=== PATIENT | female | born 1970 | race Caucasian/White ===

== ENCOUNTER → 2018-06-29 10:35 | Outpatient (CLI) | payer MEDICARE, SELFPAY ==
[2018-06-29 12:12] LABS: Erythrocyte Sedimentation Rate 25 mm/hr (0-20)
[2018-06-29 12:17] LABS: Absolute Lymphocyte Count 2.02 X10^3/ul (0.83-4.51); Absolute Neutrophil Count 5.2 X10^3/uL (2.0-7.7); Basophil# 0.06 X10^3/uL; Basophil% 0.7 % (0-1); Eosinophil# 0.28 X10^3/uL; Eosinophils% 3.4 % (0-5); Hemoglobin 14.1 g/dl (12.0-15.0); Lymphocyte # 2.02 X10^3/ul (4.0); Lymphocyte % 24.6 % (19-41); Mean Corp Hgb Conc 32.8 g/gl (32-36); Mean Corpuscular Hgb 29.7 pg (27.0-32.0); Mean Corpuscular Volume 90.7 fL (81-99); Mean Platelet Vol. 9.8 fl (6.2-12.0); Monocyte# 0.62 X10^3/uL; Monocyte% 7.6 % (0-10); Neutrophil # 5.22 X10^3/uL (2.7-7.7); Neutrophil % 63.6 % (47-70); Platelet Count 273 K/mm3 (150-450); RBC Distribution Width CV 13.3 % (11.6-14.6); RBC Distribution Width SD 43.8 fl (35.1-43.9); Red Blood Count 4.74 M/mm3 (4.2-5.4); White Blood Count 8.2 K/mm3 (4.4-11.0)
[2018-06-29 12:18] LABS: POSITIVE COUNT NO; POSITIVE DIFFERENTIAL NO; POSITIVE MORPHOLOGY NO
[2018-06-29 12:40] LABS: ALB/GLOB Ratio 0.9 RATIO (0.9-2.4); AST(SGOT) 11 U/L (15-37); Alanine Aminotransfer ALT/SGPT 26 U/L (13-56); Albumin, Serum 3.7 g/dL (3.2-5.0); Alkaline Phosphatase 83 U/L (45-117); Anion Gap 8 (5-15); BUN 8 mg/dL (7-18); BUN/Creat Ratio 9.6 RATIO (10-20); Calcium,Total 8.9 mg/dL (8.5-10.1); Chloride 107 mmol/L (98-107); Creatinine, Serum 0.83 mg/dL (0.55-1.02); EST Glomerular Filtration Rate 78 mL/min (>60); Est Glom Filt Rate - Afr Amer 95 mL/min (>60); Globulin 3.9 g/dL (2.2-4.2); Glucose 93 mg/dL (74-106); Lipase 140 U/L (73-393); Potassium 3.8 mmol/L (3.5-5.1); Protein, Total 7.6 g/dL (6.4-8.2); Sodium Level 139 mmol/L (136-145); Thyroid Stim Hormone (TSH) 3.17 uIU/mL (0.358-3.74)
[2018-07-01 00:12] LABS: Endomysial Antibody IgA Negative (Negative)
[2018-07-01 09:34] LABS: Deamidated Gliadin IgA 3 units (0-19); Deamidated Gliadin IgG 3 units (0-19); Immunoglobulin A 200 mg/dL (87-352); t-Transglutaminase IgA <2 U/mL (0-3)
== END ==
PROVIDERS: Family Provider Family Medicine; PCP Family Medicine; Visit Provider Family Medicine
DX: R19.7 Diarrhea, unspecified (principal)
CPT/HCPCS: 36415; 80053; 82784; 83516; 83690; 84443; 85025; 85652; 86255

== ENCOUNTER → 2018-07-19 07:49 | Outpatient (CLI) | payer MEDICARE, MEDICAID, SELFPAY ==
--- NOTE | 2018-07-19 08:01 | US_ITS ---
HISTORY: CHRONIC DIARRHEA TECHNIQUE: Transabdominal ultrasound was performed with real-time and static gimenez-scale imaging. COMPARISON: None FINDINGS: # of images incl. paperwork: 84 Liver: There is normal echogenicity of the liver. The bile ducts are within normal limits. There is no demonstrated mass lesion. Portal vein flow is hepatopedal. Gallbladder: Normal distended gallbladder. The gallbladder wall measures 2 mm. There is a negative sonographic Bryan's sign. There is no pericholecystic fluid. There are no gallstones. Common Bile Duct: The common bile duct measures 4 mm. Spleen: Normal size of the spleen. The spleen measures .. cm. Pancreas: There is normal echogenicity of the pancreas. There is no demonstrated pancreatic mass or cyst. Right Kidney: Normal size of the right kidney. The right kidney measures 9.5 x 4.3 x 3.8 cm. Normal renal cortex. There is no demonstrated renal mass or cyst. There is no right hydronephrosis. No ascites. US/Abdomen Limited IMPRESSION: Normal limited right upper abdominal ultrasound examination. at 1236 Reported and signed by: Anthony Hart MD Electronically Signed: Anthony Hart, at 12:35 EST Tel , Service support ,
== END ==
PROVIDERS: Family Provider Family Medicine; PCP Family Medicine; Referring Provider Family Medicine; Visit Provider Family Medicine
DX: R19.7 Diarrhea, unspecified (principal)
CPT/HCPCS: 76705

== ENCOUNTER → 2019-07-25 | Outpatient (CLI) | payer MEDICARE, SELFPAY ==
[2019-07-25 12:26] LABS: Absolute Lymphocyte Count 1.93 X10^3/uL (0.83-4.51); Absolute Neutrophil Count 4.8 X10^3/uL (2.0-7.7); Basophil# 0.05 X10^3/uL; Basophil% 0.7 % (0-1); Eosinophil# 0.11 X10^3/uL; Eosinophils% 1.5 % (0-5); Hemoglobin 13.4 g/dL (12.0-15.0); Lymphocyte # 1.93 X10^3/ul (4.0); Lymphocyte % 26.2 % (19-41); Mean Corp Hgb Conc 32.7 g/dL (32-36); Mean Corpuscular Hgb 29.6 pg (27.0-32.0); Mean Corpuscular Volume 90.5 fL (81-99); Mean Platelet Vol. 10.5 fl (6.2-12.0); Monocyte% 6.8 % (0-10); NRBC Flagged by Analyzer 0 % (0-5); Neutrophil # 4.75 X10^3/uL (2.7-7.7); Neutrophil % 64.3 % (47-70); Platelet Count 259 K/mm3 (150-450); RBC Distribution Width CV 13.1 % (11.6-14.6); RBC Distribution Width SD 43.4 fl (35.1-43.9); Red Blood Count 4.53 M/mm3 (4.2-5.4); White Blood Count 7.4 K/mm3 (4.4-11.0)
[2019-07-25 12:35] LABS: Vitamin B12 737 pg/mL (211-911); Vitamin D,25 Hydroxy 19.4 ng/mL (29.95-100.01)
[2019-07-25 12:41] LABS: ALB/GLOB Ratio 0.9 RATIO (0.9-2.4); AST(SGOT) 10 U/L (15-37); Alanine Aminotransfer ALT/SGPT 29 U/L (13-56); Albumin, Serum 3.5 g/dL (3.2-5.0); Alkaline Phosphatase 80 U/L (45-117); Anion Gap 5 (5-15); BUN 10 mg/dL (7-18); BUN/Creat Ratio 11.6 RATIO (10-20); Chloride 106 mmol/L (98-107); Cholesterol 214 mg/dL (200); Creatinine, Serum 0.86 mg/dL (0.55-1.02); EST Glomerular Filtration Rate 75 mL/min (>60); Est Glom Filt Rate - Afr Amer 90 mL/min (>60); Globulin 3.7 g/dL (2.2-4.2); Glucose 104 mg/dL (74-106); High Density Lipoprotein 69 mg/dL; Potassium 3.9 mmol/L (3.5-5.1); Protein, Total 7.2 g/dL (6.4-8.2); Sodium Level 137 mmol/L (136-145); Thyroid Stim Hormone (TSH) 2.28 uIU/mL (0.358-3.74)
== END | disposition home or self-care (01) ==
PROVIDERS: PCP Family Medicine; Referring Provider Family Medicine; Visit Provider Family Medicine
DX: E11.319 Type 2 diabetes mellitus with unspecified diabetic retinopathy without macular edema (principal); E55.9 Vitamin D deficiency, unspecified
CPT/HCPCS: 36415; 80053; 82306; 82465; 82607; 83718; 84443; 85025

== ENCOUNTER → 2020-12-13 10:40 | Outpatient (CLI) | payer MEDICARE, MEDICAID, SELFPAY ==
[2020-12-13 11:59] LABS: Absolute Lymphocyte Count 2.19 X10^3/uL (0.83-4.51); Absolute Neutrophil Count 4.1 X10^3/uL (2.0-7.7); Basophil# 0.06 X10^3/uL; Basophil% 0.9 % (0-1); Eosinophil# 0.05 X10^3/uL; Eosinophils% 0.7 % (0-5); Hematocrit 45.2 % (37-47); Hemoglobin 14.7 g/dL (12.0-15.0); Lymphocyte # 2.19 X10^3/ul (0.83-4.51); Lymphocyte % 31.8 % (19-41); Mean Corp Hgb Conc 32.5 g/dL (32-36); Mean Corpuscular Hgb 29.3 pg (27.0-32.0); Mean Platelet Vol. 10.1 fl (6.2-12.0); Monocyte# 0.48 X10^3/uL; NRBC Flagged by Analyzer 0 % (0-5); Neutrophil # 4.08 X10^3/uL (2.7-7.7); Neutrophil % 59.2 % (47-70); Platelet Count 277 K/mm3 (150-450); RBC Distribution Width CV 12.8 % (11.6-14.6); RBC Distribution Width SD 42.1 fl (35.1-43.9); Red Blood Count 5.02 M/mm3 (4.2-5.4); White Blood Count 6.9 K/mm3 (4.4-11.0)
[2020-12-13 12:23] LABS: ALB/GLOB Ratio 1.1 RATIO (0.9-2.4); AST(SGOT) 17 U/L (15-37); Alanine Aminotransfer ALT/SGPT 30 U/L (13-56); Albumin, Serum 4.1 g/dL (3.2-5.0); Alkaline Phosphatase 79 U/L (45-117); Anion Gap 6 (5-15); BUN 7 mg/dL (7-18); BUN/Creat Ratio 7.4 RATIO (10-20); Calcium,Total 8.9 mg/dL (8.5-10.1); Chloride 105 mmol/L (98-107); Creatinine, Serum 0.95 mg/dL (0.55-1.02); EST Glomerular Filtration Rate 67 mL/min (>60); Est Glom Filt Rate - Afr Amer 81 mL/min (>60); Globulin 3.8 g/dL (2.2-4.2); Glucose 122 mg/dL (74-106); Potassium 3.8 mmol/L (3.5-5.1); Protein, Total 7.9 g/dL (6.4-8.2); Sodium Level 138 mmol/L (136-145); Thyroid Stim Hormone (TSH) 2.13 uIU/mL (0.358-3.74)
== END ==
PROVIDERS: PCP Family Medicine; Referring Provider Family Medicine; Visit Provider Family Medicine
DX: E11.319 Type 2 diabetes mellitus with unspecified diabetic retinopathy without macular edema (principal); E66.1 Drug-induced obesity
CPT/HCPCS: 36415; 80053; 84443; 85025

== ENCOUNTER 2021-09-13 17:49 | Outpatient (CLI) | payer MEDICARE, MEDICAID, SELFPAY ==
[2021-09-13 17:51] LABS: Bacteria 0 SEEN /hpf (None Seen); Mucous, Urine 0 SEEN /hpf (<or=2+); Red Blood Cells-Urine 0 SEEN /hpf (0-5); White Blood Cells 0 SEEN /hpf (0-5)
[2021-09-13 18:58] LABS: Color, Urine Yellow (Yellow); Glucose, Dipstick Normal (Normal); Ketone-Dipstick Negative (Negative); Leukocyte Esterase-Dipstick Negative /ul (Negative); Nitrite-Dipstick Negative (Negative); Occult Blood-Urine Negative /ul (Negative); Protein-Dipstick Negative (Negative); Specific Gravity, Urine 1.015 (1.002-1.030); Urine Bilirubin Dipstick Negative (Negative); Urine Clarity Clear (Clear); Urine Urobilinogen Normal (Normal)
[2021-09-13 19:06] LABS: Squamous Epithelial Cells - UA 0-5 SEEN /hpf (5-10)
== END 2021-09-13 23:59 | disposition home or self-care (01) ==
PROVIDERS: PCP Family Medicine; Visit Provider Family Medicine
DX: R30.0 Dysuria (principal)
CPT/HCPCS: 81001; 87086; 87088

== ENCOUNTER → 2021-10-18 | Outpatient (CLI) | payer MEDICARE, MEDICAID, SELFPAY ==
[2021-10-25 20:06] LABS: HPV APTIMA, High Risk Negative (Negative)
[2021-10-25 20:11] LABS: HPV Reflexed? YES, CHARGE PATIENT
== END | disposition home or self-care (01) ==
PROVIDERS: PCP Family Medicine; Visit Provider Registered Nurse
DX: Z12.4 Encounter for screening for malignant neoplasm of cervix (principal)
CPT/HCPCS: 87624; 88175; G0145

== ENCOUNTER → 2021-12-19 | Outpatient (CLI) | payer MEDICARE, MEDICAID, SELFPAY ==
[2021-12-19 12:30] LABS: Absolute Lymphocyte Count 2.39 X10^3/uL (0.83-4.51); Absolute Neutrophil Count 4.3 X10^3/uL (2.0-7.7); Basophil# 0.06 X10^3/uL; Basophil% 0.8 % (0-1); Eosinophil# 0.11 X10^3/uL; Eosinophils% 1.5 % (0-5); Hematocrit 42.6 % (37-47); Hemoglobin 13.8 g/dL (12.0-15.0); Lymphocyte # 2.39 X10^3/ul (0.83-4.51); Lymphocyte % 31.8 % (19-41); Mean Corp Hgb Conc 32.4 g/dL (32-36); Mean Corpuscular Hgb 29.3 pg (27.0-32.0); Mean Corpuscular Volume 90.4 fL (81-99); Mean Platelet Vol. 9.9 fl (6.2-12.0); Monocyte# 0.59 X10^3/uL; Monocyte% 7.8 % (0-10); NRBC Flagged by Analyzer 0 % (0-5); Neutrophil # 4.33 X10^3/uL (2.7-7.7); Neutrophil % 57.6 % (47-70); Platelet Count 288 K/mm3 (150-450); RBC Distribution Width SD 43.1 fl (35.1-43.9); Red Blood Count 4.71 M/mm3 (4.2-5.4); White Blood Count 7.5 K/mm3 (4.4-11.0)
[2021-12-19 13:28] LABS: ALB/GLOB Ratio 1.1 RATIO (0.9-2.4); AST(SGOT) 20 U/L (15-37); Alanine Aminotransfer ALT/SGPT 38 U/L (13-56); Albumin, Serum 3.9 g/dL (3.2-5.0); Alkaline Phosphatase 80 U/L (45-117); Anion Gap 9 (5-15); BUN 9 mg/dL (7-18); BUN/Creat Ratio 8.7 RATIO (10-20); Calcium,Total 9.5 mg/dL (8.5-10.1); Chloride 102 mmol/L (98-107); Creatinine, Serum 1.03 mg/dL (0.55-1.02); EST Glomerular Filtration Rate 61 mL/min (>60); Est Glom Filt Rate - Afr Amer 73 mL/min (>60); Globulin 3.7 g/dL (2.2-4.2); Glucose 114 mg/dL (74-106); Protein, Total 7.6 g/dL (6.4-8.2); Sodium Level 138 mmol/L (136-145); Thyroid Stim Hormone (TSH) 2.38 uIU/mL (0.358-3.74)
== END | disposition home or self-care (01) ==
LOC: MFPLAB 11:22
PROVIDERS: PCP Family Medicine; Visit Provider Family Medicine
DX: E11.22 Type 2 diabetes mellitus with diabetic chronic kidney disease (principal); E11.319 Type 2 diabetes mellitus with unspecified diabetic retinopathy without macular edema; N18.2 Chronic kidney disease, stage 2 (mild)
CPT/HCPCS: 36415; 80053; 84443; 85025

== ENCOUNTER → 2022-06-27 | Outpatient (CLI) | payer MEDICARE, MEDICAID, SELFPAY ==
[2022-06-27 15:05] LABS: Absolute Lymphocyte Count 1.47 X10^3/uL (0.83-4.51); Absolute Neutrophil Count 5.7 X10^3/uL (2.0-7.7); Basophil# 0.04 X10^3/uL; Basophil% 0.5 % (0-1); Eosinophil# 0.07 X10^3/uL; Eosinophils% 0.9 % (0-5); Hemoglobin 14.1 g/dL (12.0-15.0); Lymphocyte # 1.47 X10^3/ul (0.83-4.51); Lymphocyte % 19.2 % (19-41); Mean Corpuscular Hgb 29.3 pg (27.0-32.0); Mean Corpuscular Volume 91.3 fL (81-99); Mean Platelet Vol. 10.4 fl (6.2-12.0); Monocyte# 0.37 X10^3/uL; Monocyte% 4.8 % (0-10); NRBC Flagged by Analyzer 0 % (0-5); Neutrophil # 5.68 X10^3/uL (2.7-7.7); Neutrophil % 74.2 % (47-70); Platelet Count 273 K/mm3 (150-450); RBC Distribution Width CV 13.3 % (11.6-14.6); Red Blood Count 4.82 M/mm3 (4.2-5.4); White Blood Count 7.7 K/mm3 (4.4-11.0)
[2022-06-27 15:45] LABS: ALB/GLOB Ratio 1.1 RATIO (0.9-2.4); AST(SGOT) 12 U/L (15-37); Alanine Aminotransfer ALT/SGPT 28 U/L (13-56); Albumin, Serum 3.9 g/dL (3.2-5.0); Alkaline Phosphatase 72 U/L (45-117); Anion Gap 6 (5-15); BUN 7 mg/dL (7-18); Calcium,Total 9.1 mg/dL (8.5-10.1); Chloride 105 mmol/L (98-107); Creatinine, Serum 0.88 mg/dL (0.55-1.02); EST Glomerular Filtration Rate 72 mL/min (>60); Est Glom Filt Rate - Afr Amer 88 mL/min (>60); GGTP 31 U/L (5-55); Globulin 3.4 g/dL (2.2-4.2); Glucose 131 mg/dL (74-106); Protein, Total 7.3 g/dL (6.4-8.2); Sodium Level 140 mmol/L (136-145); Thyroid Stim Hormone (TSH) 2.87 uIU/mL (0.358-3.74)
[2022-06-27 15:47] LABS: Microalbumin,Random Urine 9.9 mg/L (NO RANGE EST.); Microalbumin:Creatinine Ratio 10.8 mg/g CRE (<30 mg/g CRE)
== END | disposition home or self-care (01) ==
LOC: MFPLAB 12:07
PROVIDERS: PCP Family Medicine; Visit Provider Family Medicine
DX: E11.319 Type 2 diabetes mellitus with unspecified diabetic retinopathy without macular edema (principal); F10.10 Alcohol abuse, uncomplicated
CPT/HCPCS: 36415; 80053; 82043; 82570; 82977; 84443; 85025

== ENCOUNTER → 2022-10-02 | Outpatient (CLI) | payer MEDICARE, MEDICAID, SELFPAY ==
[2022-10-02 15:24] LABS: Vitamin D,25 Hydroxy 21.7 ng/mL
[2022-10-02 15:27] LABS: AST(SGOT) 77 U/L (15-37); Alanine Aminotransfer ALT/SGPT 103 U/L (13-56); Albumin, Serum 3.5 g/dL (3.2-5.0); Alkaline Phosphatase 102 U/L (45-117); Anion Gap 3 (5-15); BUN 8 mg/dL (7-18); BUN/Creat Ratio 10.2 RATIO (10-20); Chloride 105 mmol/L (98-107); Creatinine, Serum 0.79 mg/dL (0.55-1.02); EST Glomerular Filtration Rate 82 mL/min (>60); Est Glom Filt Rate - Afr Amer 99 mL/min (>60); Globulin 3.5 g/dL (2.2-4.2); Glucose 130 mg/dL (74-106); Potassium 4.1 mmol/L (3.5-5.1); Sodium Level 136 mmol/L (136-145)
[2022-10-02 15:43] LABS: Hemoglobin A1c 7.1 % (3.8-5.6)
== END | disposition home or self-care (01) ==
LOC: MFPLAB 12:09
PROVIDERS: PCP Family Medicine; Referring Provider Family Medicine; Visit Provider Family Medicine
DX: N18.2 Chronic kidney disease, stage 2 (mild) (principal); E11.22 Type 2 diabetes mellitus with diabetic chronic kidney disease; N91.2 Amenorrhea, unspecified
CPT/HCPCS: 36415; 80053; 82306; 83036; 84443

== ENCOUNTER → 2023-04-03 | Outpatient (CLI) | payer MEDICAID, SELFPAY ==
[2023-04-03 15:15] LABS: Absolute Lymphocyte Count 1.68 X10^3/uL (0.83-4.51); Absolute Neutrophil Count 3.9 X10^3/uL (2.0-7.7); Basophil# 0.04 X10^3/uL; Basophil% 0.7 % (0-1); Eosinophil# 0.06 X10^3/uL; Hematocrit 43.2 % (37-47); Hemoglobin 13.3 g/dL (12.0-15.0); Lymphocyte # 1.68 X10^3/ul (0.83-4.51); Lymphocyte % 27.3 % (19-41); Mean Corp Hgb Conc 30.8 g/dL (32-36); Mean Corpuscular Hgb 28.4 pg (27.0-32.0); Mean Corpuscular Volume 92.3 fL (81-99); Mean Platelet Vol. 11.1 fl (6.2-12.0); Monocyte# 0.45 X10^3/uL; Monocyte% 7.3 % (0-10); NRBC Flagged by Analyzer 0 % (0-5); Neutrophil # 3.91 X10^3/uL (2.7-7.7); Neutrophil % 63.5 % (47-70); Platelet Count 204 K/mm3 (150-450); RBC Distribution Width CV 14.1 % (11.6-14.6); RBC Distribution Width SD 47.8 fl (35.1-43.9); Red Blood Count 4.68 M/mm3 (4.2-5.4); White Blood Count 6.2 K/mm3 (4.4-11.0)
[2023-04-03 15:53] LABS: ALB/GLOB Ratio 0.9 RATIO (0.9-2.4); AST(SGOT) 15 U/L (15-37); Alanine Aminotransfer ALT/SGPT 35 U/L (13-56); Albumin, Serum 3.4 g/dL (3.2-5.0); Alkaline Phosphatase 65 U/L (45-117); Anion Gap 7 (5-15); BUN 7 mg/dL (7-18); BUN/Creat Ratio 8.7 RATIO (10-20); Calcium,Total 8.7 mg/dL (8.5-10.1); Chloride 105 mmol/L (98-107); Cholesterol 156 mg/dL (200); EST Glomerular Filtration Rate 80 mL/min (>60); Est Glom Filt Rate - Afr Amer 97 mL/min (>60); Globulin 3.6 g/dL (2.2-4.2); Glucose 244 mg/dL (74-106); High Density Lipoprotein 79 mg/dL; Sodium Level 135 mmol/L (136-145)
== END | disposition home or self-care (01) ==
LOC: MFPLAB 12:23
PROVIDERS: PCP Family Medicine; Visit Provider Family Medicine
DX: R74.8 Abnormal levels of other serum enzymes (principal); F33.1 Major depressive disorder, recurrent, moderate; E11.22 Type 2 diabetes mellitus with diabetic chronic kidney disease; N18.9 Chronic kidney disease, unspecified
CPT/HCPCS: 36415; 80053; 82465; 83718; 84443; 85025

== ENCOUNTER → 2023-10-01 | Outpatient (CLI) | payer MEDICAID, SELFPAY ==
[2023-10-01 12:06] LABS: Absolute Lymphocyte Count 1.56 X10^3/uL (0.83-4.51); Absolute Neutrophil Count 4.8 X10^3/uL (2.0-7.7); Basophil# 0.04 X10^3/uL; Basophil% 0.6 % (0-1); Eosinophil# 0.12 X10^3/uL; Eosinophils% 1.7 % (0-5); Hemoglobin 14.3 g/dL (12.0-15.0); Lymphocyte # 1.56 X10^3/ul (0.83-4.51); Lymphocyte % 22.1 % (19-41); Mean Corp Hgb Conc 32.5 g/dL (32-36); Mean Corpuscular Hgb 28.7 pg (27.0-32.0); Mean Corpuscular Volume 88.4 fL (81-99); Mean Platelet Vol. 11.1 fl (6.2-12.0); Monocyte# 0.53 X10^3/uL; Monocyte% 7.5 % (0-10); NRBC Flagged by Analyzer 0 % (0-5); Neutrophil # 4.78 X10^3/uL (2.7-7.7); Neutrophil % 67.8 % (47-70); Platelet Count 248 K/mm3 (150-450); RBC Distribution Width CV 13.8 % (11.6-14.6); RBC Distribution Width SD 44.3 fl (35.1-43.9); Red Blood Count 4.98 M/mm3 (4.2-5.4); White Blood Count 7.1 K/mm3 (4.4-11.0)
[2023-10-01 13:49] LABS: Hemoglobin A1c 6.2 % (3.8-5.6)
[2023-10-01 15:13] LABS: ALB/GLOB Ratio 0.9 RATIO (0.9-2.4); AST(SGOT) 14 U/L (15-37); Alanine Aminotransfer ALT/SGPT 30 U/L (13-56); Albumin, Serum 3.7 g/dL (3.2-5.0); Alkaline Phosphatase 85 U/L (45-117); Anion Gap 8 (5-15); BUN 8 mg/dL (7-18); BUN/Creat Ratio 7.9 RATIO (10-20); Calcium,Total 9.5 mg/dL (8.5-10.1); Chloride 106 mmol/L (98-107); Creatinine, Serum 1.01 mg/dL (0.55-1.02); EST Glomerular Filtration Rate 61 mL/min (>60); Est Glom Filt Rate - Afr Amer 74 mL/min (>60); Follicle Stimulating Hormone 66.1 mIU/mL; Globulin 4.1 g/dL (2.2-4.2); Glucose 137 mg/dL (74-106); Protein, Total 7.8 g/dL (6.4-8.2); Sodium Level 135 mmol/L (136-145)
== END | disposition home or self-care (01) ==
LOC: MFPLAB 09:44
PROVIDERS: PCP Family Medicine; Visit Provider Family Medicine
DX: E11.319 Type 2 diabetes mellitus with unspecified diabetic retinopathy without macular edema (principal); E66.1 Drug-induced obesity
CPT/HCPCS: 36415; 80053; 83001; 83036; 84443; 85025

== ENCOUNTER → 2024-04-07 | Outpatient (CLI) | payer MEDICAID, SELFPAY ==
[2024-04-07 12:25] LABS: Absolute Lymphocyte Count 1.54 X10^3/uL (0.83-4.51); Absolute Neutrophil Count 4.1 X10^3/uL (2.0-7.7); Basophil# 0.04 X10^3/uL; Basophil% 0.6 % (0-1); Eosinophil# 0.13 X10^3/uL; Eosinophils% 2.1 % (0-5); Hematocrit 43.1 % (37-47); Hemoglobin 14.3 g/dL (12.0-15.0); Lymphocyte # 1.54 X10^3/ul (0.83-4.51); Lymphocyte % 24.3 % (19-41); Mean Corp Hgb Conc 33.2 g/dL (32-36); Mean Corpuscular Hgb 29.2 pg (27.0-32.0); Mean Platelet Vol. 11.3 fl (6.2-12.0); Monocyte# 0.49 X10^3/uL; Monocyte% 7.7 % (0-10); NRBC Flagged by Analyzer 0 % (0-5); Neutrophil # 4.12 X10^3/uL (2.7-7.7); Platelet Count 249 K/mm3 (150-450); RBC Distribution Width CV 13.4 % (11.6-14.6); RBC Distribution Width SD 42.6 fl (35.1-43.9); White Blood Count 6.3 K/mm3 (4.4-11.0)
[2024-04-07 14:00] LABS: AST(SGOT) 13 U/L (15-37); Alanine Aminotransfer ALT/SGPT 24 U/L (13-56); Albumin, Serum 3.7 g/dL (3.2-5.0); Alkaline Phosphatase 68 U/L (45-117); Anion Gap 8 (5-15); BUN 5 mg/dL (7-18); BUN/Creat Ratio 6.5 RATIO (10-20); Calcium,Total 9.9 mg/dL (8.5-10.1); Chloride 107 mmol/L (98-107); Creatinine, Serum 0.77 mg/dL (0.55-1.02); EST Glomerular Filtration Rate 83 mL/min (>60); Est Glom Filt Rate - Afr Amer 101 mL/min (>60); Globulin 3.7 g/dL (2.2-4.2); Glucose 98 mg/dL (74-106); Potassium 3.7 mmol/L (3.5-5.1); Protein, Total 7.4 g/dL (6.4-8.2); Sodium Level 136 mmol/L (136-145)
== END | disposition home or self-care (01) ==
LOC: MFPLAB 10:50
PROVIDERS: PCP Family Medicine; Visit Provider Family Medicine
DX: E11.22 Type 2 diabetes mellitus with diabetic chronic kidney disease (principal); N18.9 Chronic kidney disease, unspecified
CPT/HCPCS: 36415; 80053; 84443; 85025

== ENCOUNTER → 2024-04-08 | Outpatient (CLI) | payer MEDICAID, SELFPAY ==
[2024-04-12 16:10] LABS: HPV APTIMA, High Risk Negative (Negative)
[2024-04-12 20:56] LABS: HPV Reflexed? YES, CHARGE PATIENT
== END | disposition home or self-care (01) ==
LOC: LABSPEC 11:13
PROVIDERS: PCP Family Medicine; Visit Provider Registered Nurse
DX: Z12.4 Encounter for screening for malignant neoplasm of cervix (principal)
CPT/HCPCS: 87624; 88175; G0145

== ENCOUNTER → 2024-07-22 | Outpatient (CLI) | payer MEDICAID, SELFPAY ==
[2024-07-22 18:03] LABS: Absolute Lymphocyte Count 1.91 X10^3/uL (0.83-4.51); Absolute Neutrophil Count 3.3 X10^3/uL (2.0-7.7); Basophil# 0.06 X10^3/uL; Eosinophil# 0.21 X10^3/uL; Eosinophils% 3.6 % (0-5); Hemoglobin 13.5 g/dL (12.0-15.0); Lymphocyte # 1.91 X10^3/ul (0.83-4.51); Lymphocyte % 32.8 % (19-41); Mean Corp Hgb Conc 31.4 g/dL (32-36); Mean Corpuscular Hgb 28.6 pg (27.0-32.0); Mean Corpuscular Volume 91.1 fL (81-99); Mean Platelet Vol. 11.1 fl (6.2-12.0); Monocyte# 0.35 X10^3/uL; NRBC Flagged by Analyzer 0 % (0-5); Neutrophil # 3.28 X10^3/uL (2.7-7.7); Neutrophil % 56.4 % (47-70); Platelet Count 243 K/mm3 (150-450); RBC Distribution Width CV 13.3 % (11.6-14.6); RBC Distribution Width SD 44.9 fl (35.1-43.9); Red Blood Count 4.72 M/mm3 (4.2-5.4); White Blood Count 5.8 K/mm3 (4.4-11.0)
[2024-07-22 18:11] LABS: Microalbumin,Random Urine 12.5 mg/L (NO RANGE EST.); Microalbumin:Creatinine Ratio 5.6 mg/g CRE (<30 mg/g CRE)
[2024-07-22 18:19] LABS: ALB/GLOB Ratio 1.1 RATIO (0.9-2.4); AST(SGOT) 14 U/L (15-37); Alanine Aminotransfer ALT/SGPT 29 U/L (13-56); Albumin, Serum 3.9 g/dL (3.2-5.0); Alkaline Phosphatase 64 U/L (45-117); Anion Gap 9 (5-15); BUN 8 mg/dL (7-18); BUN/Creat Ratio 9.1 RATIO (10-20); Calcium,Total 9.7 mg/dL (8.5-10.1); Chloride 108 mmol/L (98-107); Creatinine, Serum 0.88 mg/dL (0.55-1.02); EST Glomerular Filtration Rate 72 mL/min (>60); Est Glom Filt Rate - Afr Amer 87 mL/min (>60); Globulin 3.5 g/dL (2.2-4.2); Glucose 91 mg/dL (74-106); Potassium 3.3 mmol/L (3.5-5.1); Protein, Total 7.4 g/dL (6.4-8.2); Sodium Level 143 mmol/L (136-145)
== END | disposition home or self-care (01) ==
LOC: MFPLAB 14:38
PROVIDERS: PCP Family Medicine; Referring Provider Family Medicine; Visit Provider Family Medicine
DX: E11.22 Type 2 diabetes mellitus with diabetic chronic kidney disease (principal); E11.319 Type 2 diabetes mellitus with unspecified diabetic retinopathy without macular edema; N18.2 Chronic kidney disease, stage 2 (mild)
CPT/HCPCS: 36415; 80053; 82043; 82570; 85025

== ENCOUNTER → 2025-01-20 | Outpatient (CLI) | payer MEDICAID, SELFPAY ==
[2025-01-20 15:54] LABS: Hematocrit 40.5 % (37-47); Hemoglobin 13.0 g/dL (12.0-15.0); Immature Granulocytes Count 0.020 X10^3/uL (0.0-0.0); Mean Corp Hgb Conc 32.1 g/dL (32-36); Mean Corpuscular Volume 90.6 fL (81-99); Mean Platelet Vol. 10.9 fl (6.2-12.0); NRBC Flagged by Analyzer 0 % (0-5); Platelet Count 229 K/mm3 (150-450); RBC Distribution Width CV 13.3 % (11.6-14.6); RBC Distribution Width SD 44.2 fl (35.1-43.9); Red Blood Count 4.47 M/mm3 (4.2-5.4); White Blood Count 6.2 K/mm3 (4.4-11.0)
[2025-01-20 16:15] LABS: Creatinine, Urine (random) 41.70 mg/dL (28.00-217.00); Microalbumin,Random Urine < 12.0 mg/L (<20 mg/L)
[2025-01-20 16:18] LABS: AST(SGOT) 34 U/L (<=31); Alanine Aminotransfer ALT/SGPT 47 U/L (<=34); Albumin, Serum 4.2 g/dL (3.5-5.0); Alkaline Phosphatase 87 U/L (35-104); Anion Gap 12 (5-15); BUN 8 mg/dL (4-19); BUN/Creat Ratio 8.5 RATIO (10-20); Calcium,Total 9.7 mg/dL (7.6-11.0); Carbon Dioxide 25.0 mmol/L (21.0-32.0); Chloride 102 mmol/L (98-108); Cholesterol 174 mg/dL (<=200); Globulin 2.8 g/dL (2.2-4.2); Glucose 77 mg/dL (70-99); Potassium 3.9 mmol/L (3.3-5.1)
[2025-01-22 06:39] LABS: LDL, Direct 120295 80 mg/dL (0-99)
== END | disposition home or self-care (01) ==
LOC: MFPLAB 11:32
PROVIDERS: PCP Family Medicine; Visit Provider Family Medicine
DX: E11.319 Type 2 diabetes mellitus with unspecified diabetic retinopathy without macular edema (principal); E78.2 Mixed hyperlipidemia
CPT/HCPCS: 36415; 80053; 82043; 82465; 82570; 83718; 83721; 85025

== ENCOUNTER 2025-03-27 07:07 | Day surgery (SDC) | payer MEDICARE, MEDICAID, SELFPAY ==
[2025-03-27] VITALS (11 sets, daily range): BP systolic 80–120; BP diastolic 57–73; PULSE 57–81; RESP 12–16; TEMP 36.1–36.6; O2SAT 99–100; BMI 23.1
--- NOTE | 2025-03-27 07:20 | H&P.OPEN ---
HPI - General General Date of Service: 03/27/25 HPI Narrative NORMA BOONE, is a 54 F who presents for screening colonoscopy due to colon cancer. Patient denies any changes since office visit. Office visit 02/23/2025 [facility] HPI: 44-year-old female presents with her boyfriend for a colonoscopy. Patient is legally blind. Patient never had previous colonoscopy. Patient states that her daughter stated her stool had been black occasionally. Patient does take a multivitamin with iron. Patient denies any abdominal pain does have constipation daily states she has hard small amounts of stool only. Patient has been on Mounjaro for about a year. Patient denies any family history of colon cancer. [facility] Medical History (Updated 03/23/25 @ 08:31 by Flor Mccoy) Vision abnormalities Dietary restriction Non-smoker Anxiety Depression Diabetes Home Medications ?Medication ?Instructions ?Recorded ?Last Taken ?Type bupropion HCl 100 mg tablet,12 hr 100 mg PO QAM 02/23/25 Unknown History sustained-release (Wellbutrin SR) multivitamin 1 tab PO QAM 02/23/25 Unknown History sertraline 50 mg tablet 50 mg PO QDAY 02/23/25 Unknown History tirzepatide 2.5 mg/0.5 mL 2.5 mg subcut QWEEK 02/23/25 Unknown History subcutaneous pen injector (Mounjaro) cholecalciferol (vitamin D3) 25 25 mcg PO DAILY 03/23/25 Unknown History mcg (1,000 unit) tablet hydroxyzine HCl 10 mg tablet 10 mg PO BID 03/23/25 Unknown History potassium citrate 5 mEq (540 mg) 540 mg PO .qd 03/23/25 Unknown History tablet,extended release rosuvastatin 20 mg tablet 20 mg PO QHS 03/23/25 Unknown History Allergy/AdvReac Type Severity Reaction Status Date / Time codeine Allergy Mild Other Verified 03/23/25 08:18 Family History (Updated 02/23/25 @ 13:01 by Chyna Alexander) Daughter Diabetes Grandmother Heart disease Surgical History (Updated 02/23/25 @ 13:00 by Chyna Alexander) delivery delivered Social History (Updated 02/23/25 @ 13:03 by Chyna Alexander) Smoking Status: Never smoker alcohol intake: current alcohol intake frequency: a few times a month additional social history: Vapes CBD oil Past Medical/Surgical History Planned Operation Planned Operative Procedure(s): Colonoscopy Previous Hospitalizations/Surgeries HX Hospitalizations: No Any Problems With Anesthesia: No You/Your Family Experience Fever (Hyperthermia) With Anes: No Cholinesterase deficiency: No Cardiovascular Hx Heart Attack: No Hx Hypertension: No Respiratory Hx Chronic Obstructive Pulmonary Disease (COPD): No Hx Asthma: No Hx Emphysema: No Hx Sleep Apnea: No Hx Respiratory Tract Infection/Cold (presently): No Do You Snore Loudly (louder than talking or can be heard): No Do You Often Feel Tired/ Fatigued/ Sleepy Dring Daytime?: No Has Anyone Observed You Stop Breathing During Sleep?: No Result (for STOP score): Negative Smoking Status: Never smoker Neurological Hx Seizures: No Does patient have nerve stimulator: No Reproduction : No Allergies codeine Allergy (Mild, Verified 03/23/25 08:18) Other has increased heart rate, N/V Discharge Is Pt Admitted From a Assisted, or a Care Home: No After D/C, Where Do you Plan to Go: Return Home Physical Exam Const alert, oriented x3 and no apparent distress HEENT normocephalic and head/scalp atraumatic Resp normal respiratory effort Cardio regular rate GI soft to palpation and non-tender; Negative for non-distended Palpation: Negative for guarding Extremity no clubbing, cyanosis or edema Skin no rashes or lesions noted Neuro CN's II-XII intact bilaterally Psych mental status grossly normal Assessment & Plan Assessment/Plan (1) Encounter for screening for malignant neoplasm of colon: Surgery Risks - Colonoscopy I discussed with the patient the risks of the procedure: Yes Risks Include but are not Limited To: Risks include but are not limited to: Bleeding, perforation requiring further surgery, inability to complete colonoscopy requiring barium enema.
--- OUTSIDE RECORDS SUMMARY | 2025-03-27 07:21 | XMS RPT_ITS | CCD ---
Author Organization [facility] Care Team Providers Care Mri Technician Name Role Phone Alfred LANDA, Kristina Mcadams Primary Care Provider Alfred LANDA, Dr. Walsh Primary Care Provider [phone] Alfred LANDA, Dr. Walsh Attending Provider [phone] Alfred LANDA, Dr. Walsh Referring Provider [phone] Audelia LANDA, Dr. Oro Attending Provider Kristina Simon Referring Unavailable Kristina Simon Primary Care Unavailable Preethi Win Attending Unavailable Lisy Venegas Attending Unavailable Simon, Kristina Primary Care Unavailable Kristina Simon Attending Unavailable Alfred, Kristina Referring Unavailable Simon, Kristina Primary Care Unavailable Simon, Kristina Primary Care Unavailable Kristina Simon Attending Unavailable Alfred Kristina Attending Unavailable Alfred, Kristina Primary Care Unavailable Alfred, Kristina Primary Care Unavailable Preethi Win Attending Unavailable Allergies Allergy Classification Reported Allergen(s) Allergy Type Date of Onset Reaction(s) Facility (8 sources) Codeine; Translations: [CODEINE] Drug Allergy 06-25-2005 Other [facility] Work Phone: Comment on above: has increased heart rate, N/V (1 source) Codeine Drug Allergy 02-23-2025 [facility] Rep[facility] Medications Current Medications Medication Drug Class(es) Dates Sig (Normalized) Sig (Original) 12 hr buPROPion hydrochloride 100 mg extended release oral tablet (7 sources) Aminoketone Start: 02-23-2025 take 1 tablet by mouth once daily in the morning Bupropion Hcl (Wellbutrin Sr) 100 mg tablet sustained-release 12 hr Active 100 mg PO EVERY MORNING February 23, 2025 12:00am Start: 06-11-2009 bupropion hcl( WELLBUTRIN XL 300 MG 24 HR TAB) Take one(1) tablet daily. 0 06/11/2009 Active Comment on above: Take one(1) tablet d aily. Multivitamin tablet (1 source) Start: Multivitamin tablet Active 1 {tbl} PO EVERY MORNING February 23, 2025 12:00am sertraline 50 mg oral tablet (7 sources) Serotonin Reuptake Inhibitor Start: take 1 tablet by mouth once daily Sertraline 50 mg tablet Active 50 mg PO daily February 23, 2025 12:00am Start: 01-01-2018 sertraline (ZO LOFT) 50 mg tablet Tirzepatide (Mounjaro) 2.5 mg/0.5 mL pen injector (1 source) Start: 02-23-2025 Tirzepatide (M ounjaro) 2.5 mg/0.5 mL pen injector Active 2.5 mg SC EVERY WEEK February 23, 2025 12:00am for 4 weeks Completed/Discontinued Medications Medication Drug Class(es) Dates Sig (Normalized) Sig (Original) LORazepam 1 mg oral tablet (6 sources) Benzodiazepine Start: 06-11-2009 End: 01-14-2023 lorazepam(ATIVAN 1 MG TAB) Take one(1) tablet twice daily. 0 06/11/2009 01/14/2023 Discontinued Comment on above: Take one(1) tablet t wice daily. 24 hr metFORMIN hydrochloride 750 mg extended release oral tablet (6 sources) Biguanide Start: 11-13-2017 metFORMIN ER (GLUCOPHAGE XR) 750 mg 24 hr tablet pravastatin sodium 40 mg oral tablet (6 sources) HMG-CoA Reductase Inhibitor Start: 11-06-2017 pravastatin (PRAVACHOL) 40 mg tablet Problems Active Problems Problem Classification Problem Date Documented Da te Episodic/Chronic Blindness and vision defects (1 source) Blindness AND/OR vision impairment level; Translations: [Unspecified visual loss] 02-23-2025 Chronic Diabetes mellitus with complications (2 sources) Type 2 diabetes mellitus with unspecified diabetic retinopathy without macular edema; Translations: [Type 2 diabetes mellitus with diabetic chronic kidney disease] Onset: 08-09-2024 Chronic Diabetes mellitus without complication (6 sources) Diabetes mellitus; Translations: [Type 2 diabetes mellitus without complications] Onset: 09-13-2007 09-13-2007 Chronic Other gastrointestinal disorders (1 source) Constipation; Translations: [Constipation, unspecified] 02-23-2025 Episodic Other nutritional; endocrine; and metabolic disorders (6 sources) Obese class I; Translations: [Obesity, unspecified] Onset: 01-15-2018 01-15-2018 Chronic Superficial injury; contusion (1 source) Splinter in hand; Translations: [Superficial foreign body of right hand, initial encounter] 01-14-2023 Episodic Past or Other Problems Problem Classification Problem Date Documented Da te Episodic/Chronic Cancer of cervix (6 sources) Atypical squamous cells of undetermined significance on cervical Papanicolaou smear; Translations: [Atypical squamous cells of undetermined significance on cytologic smear of cervix (ASC-US)] Onset: 01-28-2018 07-01-2019 Episodic Other screening for suspected conditions (not mental disorders or infectious disease) (2 sources) Patient encounter status; Translations: [Encounter for screening for malignant neoplasm of colon] Onset: 04-26-2024 02-23-2025 Episodic Results Test Name Value Interpretation Reference Range Facility Surgery Visit Reporton 02-23 Surgery Visit Report [facility] [address] [place] [address] OFFICE VISIT Date of Service: 02/23/25 MR#: [id number] Acct: [id number] Name: SHEY BOONE Rep #: [id number] : 1970 Provider: Dr. Preethi jones MD Age/Sex: 54/F Location: [facility] Status: Signed Intake Vital Signs 02/23/25 13:03 Height 5 ft 2 in Weight: 111 lb BMI 20.2 BP 113/77 Blood Pressure Location Lt brachial Position Sitting Respiration 17 Pulse 77 Pulse Source Monitor Pulse Oximetry (%) 97 Oxygen Delivery Method room air Intake Visit Reasons: COLONOSCOPY Chief Complaint: colonoscopy Accompanied by: Significant Other Is patient in pain?: No Allergies codeine Allergy (Mild, Verified 02/23/25 13:04) Other Medications ???Medication ???Instructions ???Recorded ???Confirmed ???Type bupropion HCl 100 mg tablet,12 hr 100 mg PO QAM 02/23/25 02/23/25 H istory sustained-release (Wellbutrin SR) multivitamin 1 tab PO QAM 02/23/25 02/23/25 His tory sertraline 50 mg tablet 50 mg PO QDAY 02/23/25 02/23/25 Hi story tirzepatide 2.5 mg/0.5 mL 2.5 mg subcut QWEEK 02/23/2502/23 History subcutaneous pen injector (Mounjaro) [facility] Medical History (Updated 02/23/25 @ 13:00 by Chyna Alexander) Anxiety Depression Diabetes Surgical History (Updated 02/23/25 @ 13:00 by Chyna Alexander) delivery delivered Family History (Updated 02/23/25 @ 13:01 by Chyna Alexander) Daughter Diabetes Grandmother Heart disease Social History (Updated 02/23/25 @ 13:03 by Chyna Alexander) alcohol intake: current alcohol intake frequency: a few times a month additional social history: Vapes CBD oil HPI HPI HPI: 44-year-old female presents with her boyfriend for a colonoscopy. Patient is legally blind. Patient never had previous colonoscopy. Patient states that her daughter stated her stool had been black occasionally. Patient does take a multivitamin with iron. Patient denies any abdominal pain does have constipation daily states she has hard small amounts of stool only. Patient has been on Mounjaro for about a year. Patient denies any family history of colon cancer. ROS General General: Yes weight change; No appetite, fatigue, colon cancer or breast cancer Additional Details: loss HEENT HEENT: No difficulty swallowing, eye injury, eye surgery, swollen glands or hoarseness Endo Endocrine: Yes diabetes mellitus; No thyroid disease, thyroid cancer, Hair loss, heat intolerance or cold intolerance Skin Skin: No rash or changing moles Musc Musculoskeletal: No back problems, arthritis, rheumatoid arthritis, gout or joint pain Cardio Cardiovascular: No murmur, pacemaker, heart disease, atrial fibrillation, high blood pressure, heart attack, heart stent, palpitations, shortness of breath with exertion or chest pain Psych Psychiatric: No depression, anxiety or hearing voices Resp Respiratory: No shortness of breath, No sleep apnea, No cough, No COPD, No asthma, No emphysema and No wheezing Gastro Gastrointestinal: Yes abdominal pain, No nausea or vomiting, Yes diarrhea, Yes constipation, No blood in stool, No acid reflux, No hemorrhoids, No ulcers, No gallbladder problem and Yes black,tarry stools Mrav Hematologic: No blood thinners, No blood disorders, No bleeding, No anemia and No blood clots Neuro Neurologic: No numbness and No tingling ROS Narrative Patient is blind and stated that her daughter told her that her stool was black in color. Exam Const General: cooperative, healthy appearing, comfortable and no acute distress HENMT Head: normocephalic Neck Neck: supple Resp Effort Inspection: normal respiratory effort Cardio Rate: regular rate GI Inspection: non-distended Palpation: soft and nontender Skin General: no rashes or lesions noted Extrem General: normal to inspection Psych Mental Status: mental status grossly normal Attitude: cooperative Assessment and Plan Assessment and Plan (1) Constipation: Status: Acute (2) Encounter for screening for malignant neoplasm of colon: Status: Acute Plan Will have patient take some magnesium citrate as she does seem to be constipated for a while. Will also plan for 1 to 2-day prep depending on how patient's bowel movements are prior to the colonoscopy. I have discussed the above with the patient. I have offered the patient colonoscopy for evaluation. I have explained the risks/benefits of the procedure and described the procedure. I have discussed the risks with the patient, including but not limited to: infection, bleeding, perforation of the GI tract requiring emergency surgery, inability to complete the procedure, injury to any internal organs, complications of anesthesia, etc. - the patie (more content not included)... Normal [facility] LDL, Directon 01-22-2025 Cholesterol in LDL [Mass/Vol] 80 mg/dL Normal 0-99 [facility] Comment on above: Order Comment: Order Date: 01/20/25 Order Info: [id number] - LDLD Result Comment: Perf ormed at: CB - [facility] [address] [id number] Jewelry Technician: Adal Reis PhD, Phone: [phone] Performed By: #### L 717.0533, U817.8303, E1758.0012 #### [facility] [address] [place], [address] COMMENT TNP Normal . [facility] Comment on above: Order Comment: Order Date: 01/20/25 Order Info: [id number] - LDLD Performed By: #### L 516.8125, A961.0243, L3300.4490 #### [facility] [address] [place], [address] Absolute lymphocyte countOrd ered By: Kristina Simon on 01-20-2025 Lymphocytes Auto (Unsp spec) [#/Vol] 1.40 10*3/uL 0.83-4.51 [facility] Absolute neutrophil countOrd ered By: Kristina Simon on 01-20-2025 Neutrophils (Bld) [#/Vol] 3.9 10*3/uL 2.0-7.7 [facility] Anion gap in Serum or Plasma Ordered By: Kristina Simon on 01-20-2025 Anion gap [Moles/Vol] 12 mmol/L 5-15 [facility] Automated lymphocyte count a s percentage of total leukocytesOrdered By: Kristina Simon on 01-20-2025 Lymphocytes/100 WBC Auto (Unsp spec) 22.4 % 19-41 [facility] BUN/creatinine ratioOrdered By: Kristina Simon on 01-20-2025 Urea nitrogen/Creatinine [Mass ratio] 8.5 mg/mg Low 10-20 [facility] Basophil percentageOrdered B y: Kristina Simon on 01-20-2025 Basophils/100 WBC (Bld) 1.4 % High 0-1 [facility] Bilirubin, totalOrdered By: Kristina Simon on 01-20-2025 Bilirubin [Mass/Vol] 0.29 mg/dL 0.00-1.30 [facility] CBC W/Diff, Automatedon Absolute Lymph 1.40 X10 3/uL Normal 0.83-4.51 [facility] Comment on above: Order Comment: Order Date: 01/20/25 Order Info: 0184-1 - CBCD Performed By: #### L 500.4050, L100.0100 #### [facility] [address] [place], [address] Absolute Neut 3.9 X10 3/uL Normal 2.0-7.7 [facility] Comment on above: Order Comment: Order Date: 01/20/25 Order Info: 0184-1 - CBCD Performed By: #### L 500.4050, L100.0100 #### [facility] [address] [place], [address] Basophils/100 WBC (Bld) 1.4 % High 0-1 [facility] Comment on above: Order Comment: Order Date: 01/20/25 Order Info: 0184-1 - CBCD Performed By: #### L 500.4050, L100.0100 #### [facility] [address] [place], [address] Eosinophils/100 WBC (Bld) 5.1 % High 0-5 [facility] Comment on above: Order Comment: Order Date: 01/20/25 Order Info: 0184-1 - CBCD Performed By: #### L 500.4050, L100.0100 #### [facility] [address] [place], [address] Erythrocyte distribution width (RBC) [Ratio] 13.3 % Normal 11.6-14.6 [facility] Comment on above: Order Comment: Order Date: 01/20/25 Order Info: 0184-1 - CBCD Performed By: #### L 500.4050, L100.0100 #### [facility] [address] [place], [address] Hematocrit (Bld) [Volume fraction] 40.5 % Normal 37-47 [facility] Comment on above: Order Comment: Order Date: 01/20/25 Order Info: 0184-1 - CBCD Performed By: #### L 500.4050, L100.0100 #### [facility] [address] [place], [address] Hemoglobin (Bld) [Mass/Vol] 13.0 g/dL Normal 12.0-15.0 [facility] Comment on above: Order Comment: Order Date: 01/20/25 Order Info: 0184-1 - CBCD Performed By: #### L 500.4050, L100.0100 #### [facility] [address] [place], [address] IG% 0.300 Normal 0.0-0.9 [facility] Comment on above: Order Comment: Order Date: 01/20/25 Order Info: 0184-1 - CBCD Result Comment: IG% - Immature Granulocytes (promyelocytes, myelocytes and metamyelocytes) > 1% indicates that a LEFT SHIFT is Present. Performed By: #### L 500.4050, L100.0100 #### [facility] [address] [place], [address] Lymphocytes/100 WBC (Bld) 22.4 % Normal 19-41 [facility] Comment on above: Order Comment: Order Date: 01/20/25 Order Info: 0184-1 - CBCD Performed By: #### L 500.4050, L100.0100 #### [facility] [address] [place], [address] MCH (RBC) [Entitic mass] 29.1 pg Normal 27.0-32.0 [facility] Comment on above: Order Comment: Order Date: 01/20/25 Order Info: 0184- - CBCD Performed By: #### L 500.4050, L100.0100 #### [facility] [address] [place], [address] MCHC (RBC) [Mass/Vol] 32.1 g/dL Normal 32-36 [facility] Comment on above: Order Comment: Order Date: 01/20/25 Order Info: 0184-1 - CBCD Performed By: #### L 500.4050, L100.0100 #### [facility] [address] [place], [address] MCV (RBC) [Entitic vol] 90.6 fL Normal 81-99 [facility] Comment on above: Order Comment: Order Date: 01/20/25 Order Info: 0184-1 - CBCD Performed By: #### L 500.4050, L100.0100 #### [facility] [address] [place], [address] Monocytes/100 WBC (Bld) 7.5 % Normal 0-10 [facility] Comment on above: Order Comment: Order Date: 01/20/25 Order Info: 0184-1 - CBCD Performed By: #### L 500.4050, L100.0100 #### [facility] [address] [place], [address] Neutrophils/100 WBC (Bld) 63.3 % Normal 47-70 [facility] Comment on above: Order Comment: Order Date: 01/20/25 Order Info: 0184-1 - CBCD Performed By: #### L 500.4050, L100.0100 #### [facility] [address] [place], [address] Nucleated RBC (Bld) [#/Vol] 0 10*3/uL Normal 0-5 [facility] Comment on above: Order Comment: Order Date: 01/20/25 Order Info: 0184-1 - CBCD Performed By: #### L 500.4050, L100.0100 #### [facility] [address] [place], [address] Platelet mean volume (Bld) [Entitic vol] 10.9 fL Normal 6.2-12.0 [facility] Comment on above: Order Comment: Order Date: 01/20/25 Order Info: 0184-1 - CBCD Performed By: #### L 500.4050, L100.0100 #### [facility] [address] [place], [address] Platelets (Bld) [#/Vol] 229 10*3/uL Normal 150-450 [facility] Comment on above: Order Comment: Order Date: 01/20/25 Order Info: 0184-1 - CBCD Performed By: #### L 500.4050, L100.0100 #### [facility] [address] [place], [address] RBC (Bld) [#/Vol] 4.47 10*6/uL Normal 4.2-5.4 [facility] Comment on above: Order Comment: Order Date: 01/20/25 Order Info: 0184-1 - CBCD Performed By: #### L 500.4050, L100.0100 #### [facility] [address] [place], [address] RDW SD 44.2 fl High 35.1-43.9 [facility] Comment on above: Order Comment: Order Date: 01/20/25 Order Info: 0184- - CBCD Performed By: #### L 500.4050, L100.0100 #### [facility] [address] [place], [address] WBC (Bld) [#/Vol] 6.2 10*3/uL Normal 4.4-11.0 [facility] Comment on above: Order Comment: Order Date: 01/20/25 Order Info: 0184- - CBCD Performed By: #### L 500.4050, L100.0100 #### [facility] [address] [place], [address] Carbon dioxide, total [Moles /volume] in Central venous bloodOrdered By: Kristina Simon on 01-20-2025 CO2 [Moles/Vol] 25.0 mmol/L 21.0-32.0 [facility] Chloride assayOrdered By: Luis Miguel Simon on 01-20-2025 Chloride [Moles/Vol] 102 mmol/L 98-108 [facility] Cholesterolon 01-20-2025 Cholesterol [Mass/Vol] 174 mg/dL Normal <=200 [facility] Comment on above: Order Comment: Order Date: 01/20/25 Order Info: 0786-1 - CMP Order Info: 2092-08 - CHOL Order Info: 2085-02 - HDL Result Comment: Chol esterol level, Desirable <200 mg/dL Borderline high cholesterol 200-239 mg/dL High cholesterol >=240 mg/dL Recommendations of the NCEP Adult Treatment Panel for the following risk-cutoff thresholds for the [place] population. Performed By: #### L 501.6400, L501.4900, L3300.4490 #### [facility] [address] [place], [address] Cholesterol in LDL Direct as say [Mass/Vol]Ordered By: Kristina Simon on 01-20-2025 Cholesterol in LDL [Mass/Vol] 80 mg/dL 0-99 [facility] Comment on above: Performed at: [address] [id number] Director: Adal Reis PhD, Phone: [phone] Comprehensive Metabolic Prof il 01-20-2025 Albumin [Mass/Vol] 4.2 g/dL Normal 3.5-5.0 [facility] Comment on above: Order Comment: Speci men Comment: [id number] Specimen Comment: Source.............Endocervix Specimen Comment: No. of containers..01 ThinPrep Vial Performed By: #### L 7400.0377 #### [facility] [address] [place], [address] Albumin/Globulin [Mass ratio] 1.5 {ratio} Normal 0.9-2.4 [facility] Comment on above: Order Comment: Speci men Comment: [id number] Specimen Comment: Source.............Endocervix Specimen Comment: No. of containers..01 ThinPrep Vial Performed By: #### L 7400.0377 #### [facility] [address] [place], [address] ALK PHOS 87 U/L Normal 35-104 [facility] Comment on above: Order Comment: Speci men Comment: [id number] Specimen Comment: Source.............Endocervix Specimen Comment: No. of containers..01 ThinPrep Vial Performed By: #### L 7400.0377 #### [facility] [address] [place], [address] ALT [Catalytic activity/Vol] 47 U/L High <=34 [facility] Comment on above: Order Comment: Speci men Comment: [id number] Specimen Comment: Source.............Endocervix Specimen Comment: No. of containers..01 ThinPrep Vial Performed By: #### L 7400.0377 #### [facility] [address] [place], [address] AST [Catalytic activity/Vol] 34 U/L High <=31 [facility] Comment on above: Order Comment: Speci men Comment: [id number] Specimen Comment: Source.............Endocervix Specimen Comment: No. of containers..01 ThinPrep Vial Performed By: #### L 7400.0377 #### [facility] [address] [place], [address] Bilirubin [Mass/Vol] 0.29 mg/dL Normal 0.00-1.30 [facility] Comment on above: Order Comment: Speci men Comment: [id number] Specimen Comment: Source.............Endocervix Specimen Comment: No. of containers..01 ThinPrep Vial Performed By: #### L 7400.0377 #### [facility] [address] [place], [address] BUN/CRE 8.5 RATIO Low 10-20 [facility] Comment on above: Order Comment: Speci men Comment: [id number] Specimen Comment: Source.............Endocervix Specimen Comment: No. of containers..01 ThinPrep Vial Performed By: #### L 7400.0377 #### [facility] [address] [place], [place], [id number] (387) Calcium [Mass/Vol] 9.7 mg/dL Normal 7.6-11.0 [facility] Comment on above: Order Comment: Speci men Comment: [id number] Specimen Comment: Source.............Endocervix Specimen Comment: No. of containers..01 ThinPrep Vial Performed By: #### L 7400.0377 #### [facility] [address] [place], [address] (970) Chloride [Moles/Vol] 102 mmol/L Normal 98-108 [facility] Comment on above: Order Comment: Speci men Comment: [id number] Specimen Comment: Source.............Endocervix Specimen Comment: No. of containers..01 ThinPrep Vial Performed By: #### L 7400.0377 #### [facility] [address] [place], [place], [address] CO2 [Moles/Vol] 25.0 mmol/L Normal 21.0-32.0 [facility] Comment on above: Order Comment: Speci men Comment: [id number] Specimen Comment: Source.............Endocervix Specimen Comment: No. of containers..01 ThinPrep Vial Performed By: #### L 7400.0377 #### [facility] [address] [place], [place], [address] (509) Creatinine [Mass/Vol] 0.90 mg/dL Normal 0.70-1.20 [facility] Comment on above: Order Comment: Speci men Comment: [id number] Specimen Comment: Source.............Endocervix Specimen Comment: No. of containers..01 ThinPrep Vial Performed By: #### L 7400.0377 #### [facility] [address] [place], [address] GAP 12 Normal 5-15 [facility] Comment on above: Order Comment: Speci men Comment: [id number] Specimen Comment: Source.............Endocervix Specimen Comment: No. of containers..01 ThinPrep Vial Performed By: #### L 7400.0377 #### [facility] [address] [place], [address] GFR/1.73 sq M.predicted among non-blacks MDRD (S/P/Bld) [Vol rate/Area] 77 mL/min/{1.73_m2} Normal >60 [facility] Comment on above: Order Comment: Speci men Comment: [id number] Specimen Comment: Source.............Endocervix Specimen Comment: No. of containers..01 ThinPrep Vial Result Comment: mL/m in/1.73m2 CKD-EPI Creatinine Equation (2020) Performed By: #### L 7400.0377 #### [facility] [address] [place], [address] Globulin (S) [Mass/Vol] 2.8 g/dL Normal 2.2-4.2 [facility] Comment on above: Order Comment: Speci men Comment: [id number] Specimen Comment: Source.............Endocervix Specimen Comment: No. of containers..01 ThinPrep Vial Performed By: #### L 7400.0377 #### [facility] [address] [place], [address] Glucose [Mass/Vol] 77 mg/dL Normal 70-99 [facility] Comment on above: Order Comment: Speci men Comment: [id number] Specimen Comment: Source.............Endocervix Specimen Comment: No. of containers..01 ThinPrep Vial Performed By: #### L 7400.0377 #### [facility] [address] [place], [address] Potassium [Moles/Vol] 3.9 mmol/L Normal 3.3-5.1 [facility] Comment on above: Order Comment: Speci men Comment: [id number] Specimen Comment: Source.............Endocervix Specimen Comment: No. of containers..01 ThinPrep Vial Performed By: #### L 7400.0377 #### [facility] [address], [place], [id number] (951) Sodium [Moles/Vol] 140 mmol/L Normal 133-145 [facility] Comment on above: Order Comment: Speci men Comment: [id number] Specimen Comment: Source.............Endocervix Specimen Comment: No. of containers..01 ThinPrep Vial Performed By: #### L 7400.0377 #### [facility] [address], [place], [id number] (753) T PROT 7.1 g/dL Normal 5.9-8.4 [facility] Comment on above: Order Comment: Speci men Comment: [id number] Specimen Comment: Source.............Endocervix Specimen Comment: No. of containers..01 ThinPrep Vial Performed By: #### L 7400.0377 #### [facility] [address] [place], [address] Urea nitrogen [Mass/Vol] 8 mg/dL Normal 4-19 [facility] Comment on above: Order Comment: Speci men Comment: [id number] Specimen Comment: Source.............Endocervix Specimen Comment: No. of containers..01 ThinPrep Vial Performed By: #### L 7400.0377 #### [facility] [address] [place], [address] Eosinophil percentageOrdered By: Kristina Simon on 01-20-2025 Eosinophils/100 WBC (Bld) 5.1 % High 0-5 [facility] Erythrocyte distribution wid th ratioOrdered By: Kristina Simon on 01-20-2025 Erythrocyte distribution width (RBC) [Ratio] 13.3 % 11.6-14.6 [facility] Erythrocyte distribution wid th standard deviationOrdered By: Kristina Simon on 01-20-2025 Erythrocyte distribution width (RBC) [Ratio] 44.2 fl High 35.1-43.9 [facility] Glomerular filtration rate ( GFR) estimation/1.73 sq m using serum, plasma, or whole bOrdered By: Kristina Simon on 01-20-2025 GFR/1.73 sq M.predicted among non-blacks MDRD (S/P/Bld) [Vol rate/Area] 77 mL/min/{1.73_m2} >60 [facility] Comment on above: mL/min/1.73m2 CKD-EP I Creatinine Equation (2020) Hematocrit Auto (Bld) [Volum e fraction]Ordered By: Kristina Simon on 01-20-2025 Hematocrit (Bld) [Volume fraction] 40.5 % 37-47 [facility] Hemoglobin measurementOrdere d By: Kristina Simon on 01-20-2025 Hemoglobin (Bld) [Mass/Vol] 13.0 g/dL 12.0-15.0 [facility] High Density Lipoproteinon 0 01-20-2025 Cholesterol in HDL [Mass/Vol] 85 mg/dL Normal [facility] Comment on above: Order Comment: Order Date: 01/20/25 Order Info: [id number] - CMP Order Info: [id number] - CHOL Order Info: [id number] - HDL Result Comment: Rocio douglas Cholesterol Education Program (NCEP) guidelines: <40 mg/dL: Low HDL-cholesterol (major risk factor for CHD) >= 60 mg/dL: High HDL-cholesterol (negative risk factor for CHD) HDL-cholesterol is affected by a number of factors, e.g. smoking, exercise, hormones, sex and age. Performed By: #### L 501.6400, L501.4900, L3300.4490 #### [facility] [address] [place], [address] Immature granulocytes/100 WB C Auto (Bld)Ordered By: Kristina Simon on 01-20-2025 Immature granulocytes/100 WBC (Bld) 0.300 % 0.0-0.9 [facility] Comment on above: IG% - Immature Granu locytes (promyelocytes, myelocytes and metamyelocytes) > 1% indicates that a LEFT SHIFT is Present. Laboratory - Chemistry and C hemistry - challengeOrdered By: Kristina Simon on 01-20-2025 AST [Catalytic activity/Vol] 34 U/L High <32 [facility] - Miscellaneous t estsOrdered By: Kristina Simon on 01-20-2025 Service comment (Unsp spec) [Interp] TNP [facility] Comment on above: Test not performed MCV (mean corpuscular volume ) determinationOrdered By: Kristina Simon on 01-20-2025 MCV (RBC) [Entitic vol] 90.6 fL 81-99 [facility] Mean corpuscular hemoglobin (MCH) determinationOrdered By: Kristina Simon on 01-20-2025 MCH (RBC) [Entitic mass] 29.1 pg 27.0-32.0 [facility] Mean corpuscular hemoglobin concentration (MCHC) determinationOrdered By: Kristina Simon on 01-20-2025 MCHC (RBC) [Mass/Vol] 32.1 g/dL 32-36 [facility] Mean platelet volume determi nationOrdered By: Kristina Simon on 01-20-2025 Platelet mean volume (Bld) [Entitic vol] 10.9 fL 6.2-12.0 [facility] Microalb:Creat Ratio,Random URon 01-20-2025 Creatinine [Mass/Vol] 41.70 mg/dL Normal 28.00-217.00 [facility] Comment on above: Order Comment: Order Date: 01/20/25 Order Info: [id number] - CREATU Order Info: [id number] - MIALB Performed By: #### L 502.0250 #### [facility] [address] [place], [place], [id number] MALB:CREAT UNABLE TO CALCULATE Normal <30 mg/g CRE [facility] Comment on above: Order Comment: Order Date: 01/20/25 Order Info: [id number] - CREATU Order Info: [id number] - MIALB Performed By: #### L 502.0250 #### [facility] [address] [place], [place], [address] MICROALBUMIN,UR < 12.0 Normal <20 mg/L [facility] Comment on above: Order Comment: Order Date: 01/20/25 Order Info: [id number] - CREATU Order Info: [id number] - MIALB Performed By: #### L 502.0250 #### [facility] [address] [place], [place], [address] Microalbumin/creat ratio urO rdered By: Kristina Simon on 01-20-2025 Urine microalbumin/creatinine ratio measurement UNABLE TO CALCULATE mg/g CRE <30 [facility] Monocyte percentageOrdered B y: Kristina Simon on 01-20-2025 Monocytes/100 WBC (Bld) 7.5 % 0-10 [facility] Neutrophil percentageOrdered By: Kristina Simon on 01-20-2025 Neutrophils/100 WBC (Bld) 63.3 % 47-70 [facility] Nucleated red blood cell per centageOrdered By: Kristina Simon on 01-20-2025 Nucleated RBC/100 WBC (Bld) [Ratio] 0 % 0-5 [facility] Platelet countOrdered By: Luis Miguel Simon on 01-20-2025 Platelets (Bld) [#/Vol] 229 10*3/uL 150-450 [facility] Potassium measurement (mass/ volume)Ordered By: Kristina Simon on 01-20-2025 Potassium (Unsp spec) [Mass/Vol] 3.9 mmol/L 3.3-5.1 [facility] RBC Auto (Bld) [#/Vol]Ordere d By: Kristina Simon on 01-20-2025 RBC (Bld) [#/Vol] 4.47 10*6/uL 4.2-5.4 [facility] Random urine creatinine dalia urement (mass/volume)Ordered By: Kristina Simon on 01-20-2025 Creatinine Unsp time (U) [Mass/Vol] 41.70 mg/dL 28.00-217.00 [facility] Serum creatinine measurement (mass/volume)Ordered By: Kristina Simon on 01-20-2025 Creatinine [Mass/Vol] 0.90 mg/dL 0.70-1.20 [facility] Serum globulin measurementOr dered By: Kristina Simon on 01-20-2025 Globulin (S) [Mass/Vol] 2.8 g/dL 2.2-4.2 [facility] Serum glucose measurement (m ass/volume)Ordered By: Kristina Simon on 01-20-2025 Glucose [Mass/Vol] 77 mg/dL 70-99 [facility] Serum or plasma alanine brand otransferase (ALT) measurementOrdered By: Kristina Simon on 01-20-2025 ALT [Catalytic activity/Vol] 47 U/L High <35 [facility] Serum or plasma albumin dalia urement (mass/volume)Ordered By: Kristina Simon on 01-20-2025 Albumin [Mass/Vol] 4.2 g/dL 3.5-5.0 [facility] Serum or plasma albumin/glob ulin mass ratioOrdered By: Kristina Simon on 01-20-2025 Albumin/Globulin [Mass ratio] 1.5 {ratio} 0.9-2.4 [facility] Serum or plasma alkaline ben sphatase measurementOrdered By: Kristina Simon on 01-20-2025 ALP [Catalytic activity/Vol] 87 U/L 35-104 [facility] Serum or plasma calcium dalia urement (mass/volume)Ordered By: Kristina Simon on 01-20-2025 Calcium [Mass/Vol] 9.7 mg/dL 7.6-11.0 [facility] Serum or plasma cholesterol in HDL measurement (mass/volume)Ordered By: Kristina Simon on 01-20-2025 Cholesterol in HDL [Mass/Vol] 85 mg/dL >40 [facility] Comment on above: National Cholesterol Education Program (NCEP) guidelines:<40 mg/dL: Low HDL-cholesterol (major risk factor for CHD)>= 60 mg/dL: High HDL-cholesterol (negative risk factor for CHD)HDL-cholesterol is affected by a number of factors, e.g. smoking, exercise, hormones, sex and age. Serum or plasma cholesterol measurement (mass/volume)Ordered By: Kristina Simon on 01-20-2025 Cholesterol [Mass/Vol] 174 mg/dL <201 [facility] Comment on above: Cholesterol level, D esirable <200 mg/dLBorderline high cholesterol 200-239 mg/dLHigh cholesterol >=240 mg/dLRecommendations of the NCEP Adult Treatment Panel for the following risk-cutoff thresholds for the [place] population. Serum or plasma urea nitroge n measurement (mass/volume)Ordered By: Kristina Simon on 01-20-2025 Urea nitrogen [Mass/Vol] 8 mg/dL 4-19 [facility] Sodium levelOrdered By: Kristina Simon on 01-20-2025 Sodium [Moles/Vol] 140 mmol/L 133-145 [facility] Total proteinOrdered By: Rebecca Simon on 01-20-2025 Protein [Mass/Vol] 7.1 g/dL 5.9-8.4 [facility] Urine albumin measurement wi detection limit of 20 mg/L or less (mass/volume)Ordered By: Kristina Simon on 01-20-2025 Albumin DL <= 20 mg/L (U) [Mass/Vol] < 12.0 mg/L <20 mg/L [facility] White blood cell (WBC) count Ordered By: Kristina Simon on 01-20-2025 WBC (Bld) [#/Vol] 6.2 10*3/uL 4.4-11.0 [facility] CBC W/Diff, Automatedon 06-24 Absolute Lymph 1.91 X10 3/uL Normal 0.83-4.51 [facility] Comment on above: Performed By: #### L 7400.0377 #### [facility] [address] [place] [address]. [place], [address] Absolute Neut 3.3 X10 3/uL Normal 2.0-7.7 [facility] Comment on above: Performed By: #### L 7400.0377 #### [facility] [address] [place], [address] Basophils/100 WBC (Bld) 1.0 % Normal 0-1 [facility] Comment on above: Performed By: #### L 7400.0377 #### [facility] [address] [place], [address] Eosinophils/100 WBC (Bld) 3.6 % Normal 0-5 [facility] Comment on above: Performed By: #### L 7400.0377 #### [facility] [address] [place], [address] Erythrocyte distribution width (RBC) [Ratio] 13.3 % Normal 11.6-14.6 [facility] Comment on above: Performed By: #### L 7400.0377 #### [facility] [address] [place], [address] Hematocrit (Bld) [Volume fraction] 43.0 % Normal 37-47 [facility] Comment on above: Performed By: #### L 7400.0377 #### [facility] [address] [place], [address] Hemoglobin (Bld) [Mass/Vol] 13.5 g/dL Normal 12.0-15.0 [facility] Comment on above: Performed By: #### L 7400.0377 #### [facility] [address] [place], [address] IG% 0.200 Normal 0.0-0.9 [facility] Comment on above: Result Comment: IG% - Immature Granulocytes (promyelocytes, myelocytes and metamyelocytes) > 1% indicates that a LEFT SHIFT is Present. Performed By: #### L 7400.0377 #### [facility] [address] [place], [address] Lymphocytes/100 WBC (Bld) 32.8 % Normal 19-41 [facility] Comment on above: Performed By: #### L 7400.0377 #### [facility] [address] [place], [address] MCH (RBC) [Entitic mass] 28.6 pg Normal 27.0-32.0 [facility] Comment on above: Performed By: #### L 7400.0377 #### [facility] [address] [place], [address] MCHC (RBC) [Mass/Vol] 31.4 g/dL Low 32-36 [facility] Comment on above: Performed By: #### L 7400.0377 #### [facility] [address] [place], [address] MCV (RBC) [Entitic vol] 91.1 fL Normal 81-99 [facility] Comment on above: Performed By: #### L 7400.0377 #### [facility] [address] [place], [address] Monocytes/100 WBC (Bld) 6.0 % Normal 0-10 [facility] Comment on above: Performed By: #### L 7400.0377 #### [facility] [address] [place], [address] Neutrophils/100 WBC (Bld) 56.4 % Normal 47-70 [facility] Comment on above: Performed By: #### L 7400.0377 #### [facility] [address] [place], [address] Nucleated RBC (Bld) [#/Vol] 0 10*3/uL Normal 0-5 [facility] Comment on above: Performed By: #### L 7400.0377 #### [facility] [address] [place], [address] Platelet mean volume (Bld) [Entitic vol] 11.1 fL Normal 6.2-12.0 [facility] Comment on above: Performed By: #### L 7400.0377 #### [facility] [address] [place], [address] Platelets (Bld) [#/Vol] 243 10*3/uL Normal 150-450 [facility] Comment on above: Performed By: #### L 7400.0377 #### [facility] [address] [place], [address] RBC (Bld) [#/Vol] 4.72 10*6/uL Normal 4.2-5.4 [facility] Comment on above: Performed By: #### L 7400.0377 #### [facility] [address] [place], [address] RDW SD 44.9 fl High 35.1-43.9 [facility] Comment on above: Performed By: #### L 7400.0377 #### [facility] [address] [place], [address] WBC (Bld) [#/Vol] 5.8 10*3/uL Normal 4.4-11.0 [facility] Comment on above: Performed By: #### L 7400.0377 #### [facility] [address] [place], [address] Comprehensive [facility] 07-22-2024 Albumin [Mass/Vol] 3.9 g/dL Normal 3.2-5.0 [facility] Comment on above: Performed By: #### L 7400.0377 #### [facility] [address] [place], [address] Albumin/Globulin [Mass ratio] 1.1 {ratio} Normal 0.9-2.4 [facility] Comment on above: Performed By: #### L 7400.0377 #### [facility] [address] [place], [address] ALK P 64 U/L Normal 45-117 [facility] Comment on above: Performed By: #### L 7400.0377 #### [facility] [address] [place], [address] ALT [Catalytic activity/Vol] 29 U/L Normal 13-56 [facility] Comment on above: Performed By: #### L 7400.0377 #### [facility] [address] [place], [address] AST [Catalytic activity/Vol] 14 U/L Low 15-37 [facility] Comment on above: Performed By: #### L 7400.0377 #### [facility] [address] [place], [address] Bilirubin [Mass/Vol] 0.30 mg/dL Normal 0.20-1.00 [facility] Comment on above: Result Comment: For patients on eltrombopag therapy, use of Dimension [place] TBIL is not recommended. Performed By: #### L [id number] #### [facility] [address] [place], [address] BUN/CRE 9.1 RATIO Low 10-20 [facility] Comment on above: Performed By: #### L 7400.0377 #### [facility] [address] [place], [address] CA,Total 9.7 mg/dL Normal 8.5-10.1 [facility] Comment on above: Performed By: #### L 7400.0377 #### [facility] [address] [place], [address] Chloride [Moles/Vol] 108 mmol/L High 98-107 [facility] Comment on above: Performed By: #### L 7400.0377 #### [facility] [address] [place], [address] CO2 [Moles/Vol] 25.0 mmol/L Normal 21.0-32.0 [facility] Comment on above: Performed By: #### L 7400.0377 #### [facility] [address] [place], [address] Creatinine [Mass/Vol] 0.88 mg/dL Normal 0.55-1.02 [facility] Comment on above: Result Comment: The validity of the calculated GFR GFRAA in patients over 70 years has not been determined. Clinical correlation is essential. Performed By: #### L 7400.0377 #### [facility] [address] [place], [address] EST GFR - AA 87 mL/min Normal >60 [facility] Comment on above: Result Comment: Afri can [place] GFR Calc Performed By: #### L 7400.0377 #### [facility] [address] [place], [address] GAP 9 Normal 5-15 [facility] Comment on above: Performed By: #### L 7400.0377 #### [facility] [address] [place], [address] GFR/1.73 sq M.predicted among non-blacks MDRD (S/P/Bld) [Vol rate/Area] 72 mL/min/{1.73_m2} Normal >60 [facility] Comment on above: Result Comment: Non- GFR Calc Performed By: #### L 7400.0377 #### [facility] [address] [place], [address] Globulin (S) [Mass/Vol] 3.5 g/dL Normal 2.2-4.2 [facility] Comment on above: Performed By: #### L 7400.0377 #### [facility] [address] [place], [address] Glucose [Mass/Vol] 91 mg/dL Normal 74-106 [facility] Comment on above: Performed By: #### L 7400.0377 #### [facility] [address] [place], [address] Potassium [Moles/Vol] 3.3 mmol/L Low 3.5-5.1 [facility] Comment on above: Performed By: #### L 7400.0377 #### [facility] [address] [place], [address] Sodium [Moles/Vol] 143 mmol/L Normal 136-145 [facility] Comment on above: Performed By: #### L 7400.0377 #### [facility] [address] [place], [address] T PROT 7.4 g/dL Normal 6.4-8.2 [facility] Comment on above: Performed By: #### L 7400.0377 #### [facility] [address] [place], [address] Urea nitrogen [Mass/Vol] 8 mg/dL Normal 7-18 [facility] Comment on above: Performed By: #### L 7400.0377 #### [facility] [address] [place], [address] Microalb:Creat Ratio,Random URon 07-22-2024 Creatinine [Mass/Vol] 225.00 mg/dL Normal NO RANGE EST . [facility] Comment on above: Performed By: #### L 7400.0377 #### [facility] [address] [place], [address] MALB:CRE 5.6 mg/g CRE Normal <30 mg/g CRE [facility] Comment on above: Performed By: #### L 7400.0377 #### [facility] [address] [place], [address] MICROALBUMIN,UR 12.5 mg/L Normal NO RANGE EST. [facility] Comment on above: Performed By: #### L 7400.0377 #### [facility] [address] [place], [address] PAP IG HPV HR APTIMAon 04-12 ADEQ Comment Normal . [facility] Comment on above: Order Comment: Speci men Comment: [id number] Specimen Comment: Source.............Endocervix Specimen Comment: No. of containers..01 ThinPrep Vial Result Comment: Sati sfactory for evaluation. Endocervical and/or squamous metaplastic cells (endocervical component) are present. Performed By: #### L 7400.0377 #### [facility] [address] [place], [place], [id number] COMM . Normal . [facility] Comment on above: Order Comment: Speci men Comment: [id number] Specimen Comment: Source.............Endocervix Specimen Comment: No. of containers..01 ThinPrep Vial Performed By: #### L 7400.0377 #### [facility] [address] [place], [address] COMMENT Comment Normal . [facility] Comment on above: Order Comment: Speci men Comment: [id number] Specimen Comment: Source.............Endocervix Specimen Comment: No. of containers..01 ThinPrep Vial Result Comment: This liquid based ThinPrep(R) pap test was screened with the use of an image guided system. Performed By: #### L 7400.0377 #### [facility] [address] [place], [address] DIAG Comment Normal . [facility] Comment on above: Order Comment: Speci men Comment: [id number] Specimen Comment: Source.............Endocervix Specimen Comment: No. of containers..01 ThinPrep Vial Result Comment: NEGA TIVE FOR INTRAEPITHELIAL LESION OR MALIGNANCY. Performed By: #### L 7400.0377 #### [facility] [address] [place], [place], [id number] HPV APTIMA, HR Negative Normal Negative [facility] Comment on above: Order Comment: Speci men Comment: [id number] Specimen Comment: Source.............Endocervix Specimen Comment: No. of containers..01 ThinPrep Vial Result Comment: This nucleic acid amplification test detects fourteen high- risk HPV types (16,18,31,33,35,39,45,51,52,56,58,59,66,68) without differentiation. Performed at: [facility] [address] [place] [id number] Jewelry Technician: Michael Fisher MD, Phone: [phone] Performed at: [address] [id number] Jewelry Technician: Nita Blount MD, Phone: [phone] Performed at: =[address] [id number] Jewelry Technician: Nita Blount MD, Phone: [phone] Performed By: #### L 7400.0377 #### [facility] [address] [place], [place], [id number] PAPSMR Comment Normal . [facility] Comment on above: Order Comment: Speci men Comment: [id number] Specimen Comment: Source.............Endocervix Specimen Comment: No. of containers..01 ThinPrep Vial Result Comment: The Pap smear is a screening test designed to aid in the detection of premalignant and malignant conditions of the uterine cervix. It is not a diagnostic procedure and should not be used as the sole means of detecting cervical cancer. Both false-positive and false-negative reports do occur. Performed By: #### Brian 7400.0377 #### [facility] [address] [place], [address] PERFORM Comment Normal . [facility] Comment on above: Order Comment: Speci men Comment: [id number] Specimen Comment: Source.............Endocervix Specimen Comment: No. of containers..01 ThinPrep Vial Result Comment: Deborah Forde, Field Artillery Operations Man (ASCP) Performed By: #### L 7400.0377 #### [facility] [address] [place], [address] CBC W/Diff, Automatedon 10- Absolute Lymph 1.54 X10 3/uL Normal 0.83-4.51 [facility] Comment on above: Performed By: #### L 501.9520, L100.0100, L500.4050 #### [facility] [address] [place], [address] Absolute Neut 4.1 X10 3/uL Normal 2.0-7.7 [facility] Comment on above: Performed By: #### L 501.9520, L100.0100, L500.4050 #### [facility] [address] [place], [address] Basophils/100 WBC (Bld) 0.6 % Normal 0-1 [facility] Comment on above: Performed By: #### L 501.9520, L100.0100, L500.4050 #### [facility] [address] [place], [address] Eosinophils/100 WBC (Bld) 2.1 % Normal 0-5 [facility] Comment on above: Performed By: #### L 501.9520, L100.0100, L500.4050 #### [facility] [facility] [address] [place], [address] Erythrocyte distribution width (RBC) [Ratio] 13.4 % Normal 11.6-14.6 [facility] Comment on above: Performed By: #### L 501.9520, L100.0100, L500.4050 #### [facility] [address] [place], [address] Hematocrit (Bld) [Volume fraction] 43.1 % Normal 37-47 [facility] Comment on above: Performed By: #### L 501.9520, L100.0100, L500.4050 #### [facility] [address] [place], [address] Hemoglobin (Bld) [Mass/Vol] 14.3 g/dL Normal 12.0-15.0 [facility] Comment on above: Performed By: #### L 501.9520, L100.0100, L500.4050 #### [facility] [address] [place], [address] IG% 0.300 Normal 0.0-0.9 [facility] Comment on above: Result Comment: IG% - Immature Granulocytes (promyelocytes, myelocytes and metamyelocytes) > 1% indicates that a LEFT SHIFT is Present. Performed By: #### L 501.9520, L100.0100, L500.4050 #### [facility] [address] [place], [address] Lymphocytes/100 WBC (Bld) 24.3 % Normal 19-41 [facility] Comment on above: Performed By: #### L 501.9520, L100.0100, [id number] #### [facility] [address] [place], [address] MCH (RBC) [Entitic mass] 29.2 pg Normal 27.0-32.0 [facility] Comment on above: Performed By: #### L 501.9520, L100.0100, L500.4050 #### [facility] [address] [place], [address] MCHC (RBC) [Mass/Vol] 33.2 g/dL Normal 32-36 [facility] Comment on above: Performed By: #### L [id number], L100.0100, L500.4050 #### [facility] [address] [place], [address] MCV (RBC) [Entitic vol] 88.0 fL Normal 81-99 [facility] Comment on above: Performed By: #### L 501.9520, L100.0100, L500.4050 #### [facility] [address] [place], [address] Monocytes/100 WBC (Bld) 7.7 % Normal 0-10 [facility] Comment on above: Performed By: #### L 501.9520, L100.0100, L500.4050 #### [facility] [address] [place], [address] Neutrophils/100 WBC (Bld) 65.0 % Normal 47-70 [facility] Comment on above: Performed By: #### L 501.9520, L100.0100, L500.4050 #### [facility] [address] [place], [address] Nucleated RBC (Bld) [#/Vol] 0 10*3/uL Normal 0-5 [facility] Comment on above: Performed By: #### L 501.9520, L100.0100, L500.4050 #### [facility] [address] [place], [address] Platelet mean volume (Bld) [Entitic vol] 11.3 fL Normal 6.2-12.0 [facility] Comment on above: Performed By: #### L 501.9520, L100.0100, L500.4050 #### [facility] [address] [place], [address] Platelets (Bld) [#/Vol] 249 10*3/uL Normal 150-450 [facility] Comment on above: Performed By: #### L 501.9520, L100.0100, L500.4050 #### [facility] [address] [place], [address] RBC (Bld) [#/Vol] 4.90 10*6/uL Normal 4.2-5.4 [facility] Comment on above: Performed By: #### L 501.9520, L100.0100, L500.4050 #### [facility] [address] [place], [address] RDW SD 42.6 fl Normal 35.1-43.9 [facility] Comment on above: Performed By: #### L 501.9520, L100.0100, [id number] #### [facility] [address] [place], [address] WBC (Bld) [#/Vol] 6.3 10*3/uL Normal 4.4-11.0 [facility] Comment on above: Performed By: #### L 501.9520, L100.0100, L500.4050 #### [facility] [address] [place], [address] Comprehensive Metabolic Prof [facility] 04-07-2024 Albumin [Mass/Vol] 3.7 g/dL Normal 3.2-5.0 [facility] Comment on above: Performed By: #### L 501.9520, L100.0100, L500.4050 #### [facility] [address] [place], [address] Albumin/Globulin [Mass ratio] 1.0 {ratio} Normal 0.9-2.4 [facility] Comment on above: Performed By: #### L 501.9520, L100.0100, L500.4050 #### [facility] [address] [place], [address] ALK P 68 U/L Normal 45-117 [facility] Comment on above: Performed By: #### L 501.9520, L100.0100, L500.4050 #### [facility] [address] [place], [address] ALT [Catalytic activity/Vol] 24 U/L Normal 13-56 [facility] Comment on above: Performed By: #### L 501.9520, L100.0100, L500.4050 #### [facility] [address] [place], [address] AST [Catalytic activity/Vol] 13 U/L Low 15-37 [facility] Comment on above: Performed By: #### L 501.9520, L100.0100, L500.4050 #### [facility] [address] [place], [address] Bilirubin [Mass/Vol] 0.50 mg/dL Normal 0.20-1.00 [facility] Comment on above: Result Comment: For patients on eltrombopag therapy, use of Dimension [place] TBIL is not recommended. Performed By: #### L 501.9520, L100.0100, L500.4050 #### [facility] [address] [place], [address] BUN/CRE 6.5 RATIO Low 10-20 [facility] Comment on above: Performed By: #### L 501.9520, L100.0100, L500.4050 #### [facility] [address] [place], [address] CA,Total 9.9 mg/dL Normal 8.5-10.1 [facility] Comment on above: Performed By: #### L 501.9520, L100.0100, L500.4050 #### [facility] [address] [place], [address] Chloride [Moles/Vol] 107 mmol/L Normal 98-107 [facility] Comment on above: Performed By: #### L 501.9520, L100.0100, L500.4050 #### [facility] [address] [place], [address] CO2 [Moles/Vol] 21.0 mmol/L Normal 21.0-32.0 [facility] Comment on above: Performed By: #### L 501.9520, L100.0100, L500.4050 #### [facility] [address] [place], [address] Creatinine [Mass/Vol] 0.77 mg/dL Normal 0.55-1.02 [facility] Comment on above: Result Comment: The validity of the calculated GFR GFRAA in patients over 70 years has not been determined. Clinical correlation is essential. Performed By: #### L 501.9520, L100.0100, L500.4050 #### [facility] [address] [place], [address] EST GFR - AA 101 mL/min Normal >60 [facility] Comment on above: Result Comment: Afri can Polish GFR Calc Performed By: #### L 501.9520, L100.0100, L500.4050 #### [facility] [address] [place], [address] GAP 8 Normal 5-15 [facility] Comment on above: Performed By: #### L 501.9520, L100.0100, L500.4050 #### [facility] [address] [place], [address] GFR/1.73 sq M.predicted among non-blacks MDRD (S/P/Bld) [Vol rate/Area] 83 mL/min/{1.73_m2} Normal >60 [facility] Comment on above: Result Comment: Non- GFR Calc Performed By: #### L 501.9520, L100.0100, L500.4050 #### [facility] [address] [place], [address] Globulin (S) [Mass/Vol] 3.7 g/dL Normal 2.2-4.2 [facility] Comment on above: Performed By: #### L 501.9520, L100.0100, L500.4050 #### [facility] [address] [place], [address] Glucose [Mass/Vol] 98 mg/dL Normal 74-106 [facility] Comment on above: Performed By: #### L 501.9520, L100.0100, L500.4050 #### [facility] [address] [place], [address] Potassium [Moles/Vol] 3.7 mmol/L Normal 3.5-5.1 [facility] Comment on above: Performed By: #### L 501.9520, L100.0100, L500.4050 #### [facility] [address] [place], [address] Sodium [Moles/Vol] 136 mmol/L Normal 136-145 [facility] Comment on above: Performed By: #### L 501.9520, L100.0100, L500.4050 #### [facility] [address] [place], [address] T PROT 7.4 g/dL Normal 6.4-8.2 [facility] Comment on above: Performed By: #### L 501.9520, L100.0100, L500.4050 #### [facility] [address] [place], [address] Urea nitrogen [Mass/Vol] 5 mg/dL Low 7-18 [facility] Comment on above: Performed By: #### L 501.9520, L100.0100, L500.4050 #### [facility] [address] [place], [address] Thyroid Stim Hormone (TSH)on 04-07-2024 TSH 3.520 uIU/mL Normal 0.358-3.740 [facility] Comment on above: Performed By: #### L 501.9520, L100.0100, L500.4050 #### [facility] [address] [place], [address] Absolute lymphocyte countOrd ered By: Kristina Simon on 10-01-2023 Lymphocytes Auto (Unsp spec) [#/Vol] 1.56 10*3/uL 0.83-4.51 [facility] Automated lymphocyte count a s percentage of total leukocytesOrdered By: Kristina Simon on 10-01-2023 Lymphocytes/100 WBC Auto (Unsp spec) 22.1 % 19-41 [facility] Basophil percentageOrdered B y: Kristina Simon on 10-01-2023 Basophils/100 WBC (Bld) 0.6 % 0-1 [facility] Bilirubin [Mass/Vol] 0.40 mg/dL 0.20-1.00 [facility] Comment on above: For patients on eltr ombopag therapy, use of Dimension [place] TBIL is not recommended. Chloride [Moles/Vol] 106 mmol/L 98-107 [facility] Eosinophils/100 WBC (Bld) 1.7 % 0-5 [facility] Glucose [Mass/Vol] 137 mg/dL 74-106 [facility] Comment on above: Fasting Glucose resu lt greater than or equal to 126 mg/dL suggests DIABETES MELLITUS per A.D.A. criteria. Hemoglobin (Bld) [Mass/Vol] 14.3 g/dL 12.0-15.0 [facility] Monocytes/100 WBC (Bld) 7.5 % 0-10 [facility] Neutrophils (Bld) [#/Vol] 4.8 10*3/uL 2.0-7.7 [facility] Neutrophils/100 WBC (Bld) 67.8 % 47-70 [facility] Potassium [Moles/Vol] 4.0 mmol/L 3.5-5.1 [facility] Protein [Mass/Vol] 7.8 g/dL 6.4-8.2 [facility] Sodium [Moles/Vol] 135 mmol/L 136-145 [facility] WBC (Bld) [#/Vol] 7.1 10*3/uL 4.4-11.0 [facility] Determination of erythrocyte mean corpuscular volume (MCV)Ordered By: Kristina Simon on 10-01-2023 MCV (RBC) [Entitic vol] 88.4 fL 81-99 [facility] Erythrocyte distribution wid th ratioOrdered By: Kristina Simon on 10-01-2023 Erythrocyte distribution width (RBC) [Ratio] 13.8 % 11.6-14.6 [facility] Erythrocyte distribution wid th standard deviationOrdered By: Kristina Simon on 10-01-2023 Erythrocyte distribution width (RBC) [Entitic vol] 44.3 fL 35.1-43.9 [facility] Hematocrit Auto (Bld) [Volum e fraction]Ordered By: Kristina Simon on 10-01-2023 Hematocrit (Bld) [Volume fraction] 44.0 % 37-47 [facility] Immature granulocytes/100 WB C Auto (Bld)Ordered By: Kristina Simon on 10-01-2023 Immature granulocytes/100 WBC (Bld) 0.300 % 0.0-0.9 [facility] Comment on above: IG% - Immature Granu locytes (promyelocytes, myelocytes and metamyelocytes) > 1% indicates that a LEFT SHIFT is Present. Laboratory - Chemistry and C hemistry - challengeOrdered By: Kristina Simon on 10-01-2023 Albumin/Globulin [Mass ratio] 0.9 {ratio} 0.9-2.4 [facility] ALP [Catalytic activity/Vol] 85 U/L 45-117 [facility] ALT [Catalytic activity/Vol] 30 U/L 13-56 [facility] CO2 [Moles/Vol] 21.0 mmol/L 21.0-32.0 [facility] Globulin (S) [Mass/Vol] 4.1 g/dL 2.2-4.2 [facility] Urea nitrogen/Creatinine [Mass ratio] 7.9 mg/mg 10-20 [facility] - Hematology and Cell countsOrdered By: Kristina Simon on 10-01-2023 MCH (RBC) [Entitic mass] 28.7 pg 27.0-32.0 [facility] MCHC (RBC) [Mass/Vol] 32.5 g/dL 32-36 [facility] Nucleated RBC/100 WBC (Bld) [Ratio] 0 % 0-5 [facility] Platelet mean volume (Bld) [Entitic vol] 11.1 fL 6.2-12.0 [facility] Platelets (Bld) [#/Vol] 248 10*3/uL 150-450 [facility] No Panel InformationOrdered By: Kristina Simon on 10-01-2023 Estimated GFR (MDRD) Amer 74 mL/min >60 [facility] Comment on above: GFR Calc Estimated GFR (MDRD) Non-Af Amer 61 mL/min >60 [facility] Comment on above: Non- GFR Calc Follicle Stimulating Hormone 66.1 mIU/mL [facility] Comment on above: NORMAL REFERENCE RAN GES FEMALE FOLLICULAR 2.3 - 12.6 mIU/mL MID-CYCLE PEAK 5.2 - 17.5 mIU/mL LUTEAL 1.7 - 12.9 mIU/mL POST-MENOPAUSAL ON MHT 5.9 - 72.8 mIU/mL NOT ON MHT 12.7 - 132.2 mlU/mL MALE 0.7 - 10.8 mIU/mL RBC Auto (Bld) [#/Vol]Ordere d By: Kristina Simon on 10-01-2023 RBC (Bld) [#/Vol] 4.98 10*6/uL 4.2-5.4 [facility] Serum or plasma calcium dalia urement (mass/volume)Ordered By: Kristina Simon on 10-01-2023 Calcium [Mass/Vol] 9.5 mg/dL 8.5-10.1 [facility] Serum or plasma creatinine m easurement (mass/volume)Ordered By: Kristina Simon on 10-01-2023 Creatinine [Mass/Vol] 1.01 mg/dL 0.55-1.02 [facility] Comment on above: The validity of the calculated GFR & GFRAA in patients over 70 years has not been determined. Clinical correlation is essential. Serum or plasma thyroid stim ulating hormone (TSH) measurement (units/volume)Ordered By: Kristina Simon on 10-01-2023 TSH Qn 2.20 uIU/mL 0.358-3.74 [facility] Serum or plasma urea nitroge n measurement (mass/volume)Ordered By: Kristina Simon on 10-01-2023 Urea nitrogen [Mass/Vol] 8 mg/dL 7-18 [facility] Thin prep Papanicolaou smear with manual screeningOrdered By: Kristina Simon on 10-01-2023 Thin prep Papanicolaou smear with manual screening 3.7 g/dL 3.2-5.0 [facility] Thin prep Papanicolaou smear with manual screening 14 U/L 15-37 [facility] Thin prep Papanicolaou smear with manual screening 8 5-15 [facility] Whole blood hemoglobin A1c/t otal hemoglobin ratio (mass fraction)Ordered By: Kristina Simon on 10-01-2023 HbA1c (Bld) [Mass fraction] 6.2 % 3.8-5.6 [facility] Comment on above: Normal < 5.7 % Predi abetic 5.7 - 6.4 % Diabetic >or= 6.5 % Please note range changes. Absolute lymphocyte countOrd ered By: Kristina Simon on 04-03-2023 Lymphocytes Auto (Unsp spec) [#/Vol] 1.68 10*3/uL 0.83-4.51 [facility] Basophil percentageOrdered B y: Kristina Simon on 04-03-2023 Basophils/100 WBC (Bld) 0.7 % 0-1 [facility] Bilirubin [Mass/Vol] 0.40 mg/dL 0.20-1.00 [facility] Comment on above: For patients on eltr ombopag therapy, use of Dimension [place] TBIL is not recommended. Chloride [Moles/Vol] 105 mmol/L 98-107 [facility] Cholesterol [Mass/Vol] 156 mg/dL <200 [facility] Comment on above: <200 mg/dL Desirable 200-240 mg/dL Borderline >240 mg/dL High Risk Eosinophils/100 WBC (Bld) 1.0 % 0-5 [facility] Glucose [Mass/Vol] 244 mg/dL 74-106 [facility] Comment on above: Glucose result great er than or equal to 200 mg/dLsuggests DIABETES MELLITUS per A.D.A. criteria. Neutrophils (Bld) [#/Vol] 3.9 10*3/uL 2.0-7.7 [facility] Neutrophils/100 WBC (Bld) 63.5 % 47-70 [facility] Potassium [Moles/Vol] 4.0 mmol/L 3.5-5.1 [facility] Protein [Mass/Vol] 7.0 g/dL 6.4-8.2 [facility] Sodium [Moles/Vol] 135 mmol/L 136-145 [facility] WBC (Bld) [#/Vol] 6.2 10*3/uL 4.4-11.0 [facility] Blood erythrocytes count (nu mber/volume)Ordered By: Kristina Simon on 04-03-2023 RBC (Bld) [#/Vol] 4.68 10*6/uL 4.2-5.4 [facility] Blood hemoglobin measurement (mass/volume)Ordered By: Kristina Simon on 04-03-2023 Hemoglobin (Bld) [Mass/Vol] 13.3 g/dL 12.0-15.0 [facility] Blood lymphocytes/100 leukoc ytesOrdered By: Kristina Simon on 04-03-2023 Lymphocytes/100 WBC (Bld) 27.3 % 19-41 [facility] Blood monocytes/100 leukocyt esOrdered By: Kristina Simon on 04-03-2023 Monocytes/100 WBC (Bld) 7.3 % 0-10 [facility] Blood platelet mean volumeOr dered By: Kristina Simon on 04-03-2023 Platelet mean volume (Bld) [Entitic vol] 11.1 fL 6.2-12.0 [facility] Determination of erythrocyte mean corpuscular volume (MCV)Ordered By: Kristina Simon on 04-03-2023 MCV (RBC) [Entitic vol] 92.3 fL 81-99 [facility] Hematocrit Auto (Bld) [Volum e fraction]Ordered By: Kristina Simon on 04-03-2023 Hematocrit (Bld) [Volume fraction] 43.2 % 37-47 [facility] - Chemistry and C hemistry - challengeOrdered By: Kristina Simon on 04-03-2023 ALP [Catalytic activity/Vol] 65 U/L 45-117 [facility] ALT [Catalytic activity/Vol] 35 U/L 13-56 [facility] CO2 [Moles/Vol] 23.0 mmol/L 21.0-32.0 [facility] Globulin (S) [Mass/Vol] 3.6 g/dL 2.2-4.2 [facility] Urea nitrogen/Creatinine [Mass ratio] 8.7 mg/mg 10-20 [facility] - Hematology and Cell countsOrdered By: Kristina Simon on 04-03-2023 Erythrocyte distribution width (RBC) [Entitic vol] 47.8 fL 35.1-43.9 [facility] Erythrocyte distribution width (RBC) [Ratio] 14.1 % 11.6-14.6 [facility] Immature granulocytes/100 WBC (Bld) 0.200 % 0.0-0.9 [facility] Comment on above: IG% - Immature Granu locytes (promyelocytes, myelocytes and metamyelocytes) > 1% indicates that a LEFT SHIFT is Present. MCH (RBC) [Entitic mass] 28.4 pg 27.0-32.0 [facility] Nucleated RBC/100 WBC (Bld) [Ratio] 0 % 0-5 [facility] MCHC Auto (RBC) [Mass/Vol]Or dered By: Kristina Simon on 04-03-2023 MCHC (RBC) [Mass/Vol] 30.8 g/dL 32-36 [facility] No Panel InformationOrdered By: Kristina Simon on 04-03-2023 Estimated GFR (MDRD) Amer 97 mL/min >60 [facility] Comment on above: GFR Calc Estimated GFR (MDRD) Non-Af Amer 80 mL/min >60 [facility] Comment on above: Non- GFR Calc Thyroid Stimulating Hormone (TSH) 1.60 uIU/mL 0.358-3.74 [facility] Platelets bldOrdered By: Rebecca Simon on 04-03-2023 Platelets (Bld) [#/Vol] 204 10*3/uL 150-450 [facility] Serum or plasma albumin dalia urement (mass/volume)Ordered By: Kristina Simon on 04-03-2023 Albumin [Mass/Vol] 3.4 g/dL 3.2-5.0 [facility] Serum or plasma albumin/glob ulin mass ratioOrdered By: Kristina Simon on 04-03-2023 Albumin/Globulin [Mass ratio] 0.9 {ratio} 0.9-2.4 [facility] Serum or plasma calcium dalia urement (mass/volume)Ordered By: Kristina Simon on 04-03-2023 Calcium [Mass/Vol] 8.7 mg/dL 8.5-10.1 [facility] Serum or plasma cholesterol in HDL measurement (mass/volume)Ordered By: Kristina Simon on 04-03-2023 Cholesterol in HDL [Mass/Vol] 79 mg/dL >40 [facility] Comment on above: The drugs N-Acetylcy steine and Metamizole may falsely depress this assay. Reference Range HDL <40 mg/dL Low HDL Cholesterol HDL >or= 60 mg/dL High HDL Cholesterol Serum or plasma creatinine m easurement (mass/volume)Ordered By: Kristina Simon on 04-03-2023 Creatinine [Mass/Vol] 0.80 mg/dL 0.55-1.02 [facility] Comment on above: The validity of the calculated GFR & GFRAA in patients over 70 years has not been determined. Clinical correlation is essential. Serum or plasma urea nitroge n measurement (mass/volume)Ordered By: Kristina Simon on 04-03-2023 Urea nitrogen [Mass/Vol] 7 mg/dL 7-18 [facility] Thin prep Papanicolaou smear with manual screeningOrdered By: Kristina Simon on 04-03-2023 Thin prep Papanicolaou smear with manual screening 15 U/L 1537 [facility] Thin prep Papanicolaou smear with manual screening 7 5-15 [facility] CNOVon 01-14-2023 CNOV Office Visit ([facility]) SHEY BOONE ([id number]) 1970 F [place] Date Time Provider Department 01/14/23 3:45 PM RAFA GONSALVES [facility] During your visit today, we recorded the following information about you: Temperature Pulse Respiration Blood pressure 98.3 degrees 96/minute 16/minute 122/80 Weight 78.5 kg Rafa Gonsalves MD 01/14/2023 4:28 PM Signed Patient presents with: Foreign Body: splinter in right hand x last night HPI: Got a wood splinter from a hand rail last night. Her daughter tried to remove the splinter from her right hand. Last tetanus booster 2008. MEDICATIONS: metFORMIN ER (GLUCOPHAGE XR) 750 mg 24 hr tablet pravastatin (PRAVACHOL) 40 mg tablet sertraline (ZOLOFT) 50 mg tablet bupropion hcl(WELLBUTRIN XL 300 MG 24 HR TAB) Take one(1) tablet daily. blood sugar diagnostic(ACCU-CHEK ADVANTAGE TEST STRIPS) to test qid- Accucheck test strips appropriate for patient's monitor LANCETS to test qid ALLERGIES: ALLERGIES Allergen Reactions Codeine HEART PALPITATIONS VITALS: BP 122/80 Pulse 96 Temp 36.8 ?C (98.3 ?F) Resp 16 Wt 78.5 kg (173 lb) LMP 06/23/2019 (Within Days) SpO2 97% BMI 34.94 kg/m? PE: Pleasant, in no acute distress, blind, ambulates with cane and assistance. Accompanied by her trimming caser. Hand: right. 4mm splinter in the palm, visible through the skin. Mild erythema surrounding the splinter for 1cm and trace victor m 1mm bordering it. Procedure: Foreign body removal. Site cleansed with isopropyl alcohol pad. 18-gauge needle used to open the skin over the splinter. 4 mm x 1 mm foreign body removed with forceps. Scant purulent discharge. Wound dressed with bacitracin on an adhesive bandage. ASSESSMENT/PLAN: 1. Splinter of right hand - ICD9: 914.6, ICD10: S60.551A Successful removal of foreign body. - TDAP VACCINE, AGE 7+ YR (ADACEL, BOOSTRIX) Follow up with signs of infection such as increasing redness, pain, swelling, purulent drainage, or fever/malaise. Rafa Gonsalves MD Allergies As of Date: 01/14/2023 Noted Allergy Reaction CODEINE 06/25/2005 Comments: HEART PALPITATIONS Date Reviewed: 01/14/2023 Reviewed by: Ilsa Watt - Fully Assessed Reason for Visit: Foreign Body [1750] Cmt: splinter in right hand x last night Primary Visit Diagnosis:Splinter of right hand [S60.551A] Order(s):TDAP VACCINE, AGE 7+ YR (ADACEL, BOOSTRIX) [[id number]] Order #: [id number] Prescriptions as of 01/14/2023 - metFORMIN ER (GLUCOPHAGE XR) 750 mg 24 hr tablet - pravastatin (PRAVACHOL) 40 mg tablet - sertraline (ZOLOFT) 50 mg tablet - bupropion hcl(WELLBUTRIN XL 300 MG 24 HR TAB) Take one(1) tablet daily. 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 Simon on 06-27-2022 Lymphocytes Auto (Unsp spec) [#/Vol] 1.47 10*3/uL 0.83-4.51 [facility] Basophil percentageOrdered B y: Dr. Simon on 06-27-2022 Basophils/100 WBC (Bld) 0.5 % 0-1 [facility] Bilirubin [Mass/Vol] 0.30 mg/dL 0.20-1.00 [facility] Comment on above: For patients on eltr ombopag therapy, use of Dimension [place] TBIL is not recommended. Chloride [Moles/Vol] 105 mmol/L 98-107 [facility] Eosinophils/100 WBC (Bld) 0.9 % 0-5 [facility] Glucose [Mass/Vol] 131 mg/dL 74-106 [facility] Comment on above: Fasting Glucose resu lt greater than or equal to 126 mg/dL suggests DIABETES MELLITUS per A.D.A. criteria. Neutrophils (Bld) [#/Vol] 5.7 10*3/uL 2.0-7.7 [facility] Neutrophils/100 WBC (Bld) 74.2 % 47-70 [facility] Potassium [Moles/Vol] 4.0 mmol/L 3.5-5.1 [facility] Protein [Mass/Vol] 7.3 g/dL 6.4-8.2 [facility] Sodium [Moles/Vol] 140 mmol/L 136-145 [facility] WBC (Bld) [#/Vol] 7.7 10*3/uL 4.4-11.0 [facility] Blood erythrocytes count (nu mber/volume)Ordered By: Dr. Simon on 06-27-2022 RBC (Bld) [#/Vol] 4.82 10*6/uL 4.2-5.4 [facility] Blood hemoglobin measurement (mass/volume)Ordered By: Dr. Simon on 06-27-2022 Hemoglobin (Bld) [Mass/Vol] 14.1 g/dL 12.0-15.0 [facility] Blood lymphocytes/100 leukoc ytesOrdered By: Dr. Simon on 06-27-2022 Lymphocytes/100 WBC (Bld) 19.2 % 19-41 [facility] Blood monocytes/100 leukocyt esOrdered By: Dr. Simon on 06-27-2022 Monocytes/100 WBC (Bld) 4.8 % 0-10 [facility] Blood platelet mean volumeOr dered By: Dr. Simon on 06-27-2022 Platelet mean volume (Bld) [Entitic vol] 10.4 fL 6.2-12.0 [facility] Determination of erythrocyte mean corpuscular volume (MCV)Ordered By: Dr. Simon on 06-27-2022 MCV (RBC) [Entitic vol] 91.3 fL 81-99 [facility] Hematocrit Auto (Bld) [Volum e fraction]Ordered By: Dr. Simon on 06-27-2022 Hematocrit (Bld) [Volume fraction] 44.0 % 37-47 [facility] Laboratory - Chemistry and C hemistry - challengeOrdered By: Dr. Simon on 06-27-2022 ALP [Catalytic activity/Vol] 72 U/L 45-117 [facility] ALT [Catalytic activity/Vol] 28 U/L 13-56 [facility] Amylase [Catalytic activity/Vol] 31 U/L 5-55 [facility] CO2 [Moles/Vol] 29.0 mmol/L 21.0-32.0 [facility] Globulin (S) [Mass/Vol] 3.4 g/dL 2.2-4.2 [facility] Urea nitrogen/Creatinine [Mass ratio] 8.0 mg/mg 10-20 [facility] Laboratory - Hematology and Cell countsOrdered By: Dr. Simon on 06-27-2022 Erythrocyte distribution width (RBC) [Entitic vol] 45.0 fL 35.1-43.9 [facility] Erythrocyte distribution width (RBC) [Ratio] 13.3 % 11.6-14.6 [facility] Immature granulocytes/100 WBC (Bld) 0.400 % 0.0-0.9 [facility] Comment on above: IG% - Immature Granu locytes (promyelocytes, myelocytes and metamyelocytes) > 1% indicates that a LEFT SHIFT is Present. MCH (RBC) [Entitic mass] 29.3 pg 27.0-32.0 [facility] Nucleated RBC/100 WBC (Bld) [Ratio] 0 % 0-5 [facility] MCHC Auto (RBC) [Mass/Vol]Or dered By: Dr. Simon on 06-27-2022 MCHC (RBC) [Mass/Vol] 32.0 g/dL 32-36 [facility] No Panel InformationOrdered By: Dr. Simon on 06-27-2022 Estimated GFR (MDRD) Amer 88 mL/min >60 [facility] Comment on above: GFR Calc Estimated GFR (MDRD) Non-Af Amer 72 mL/min >60 [facility] Comment on above: Non- GFR Calc Thyroid Stimulating Hormone (TSH) 2.87 uIU/mL 0.358-3.74 [facility] Urine Microalbumin/Creatinine Ratio 10.8 mg/g CRE <30 [facility] Platelets bldOrdered By: Dr. Simon on 06-27-2022 Platelets (Bld) [#/Vol] 273 10*3/uL 150-450 [facility] Serum or plasma albumin dalia urement (mass/volume)Ordered By: Dr. Simon on 06-27-2022 Albumin [Mass/Vol] 3.9 g/dL 3.2-5.0 [facility] Serum or plasma albumin/glob ulin mass ratioOrdered By: Dr. Simon on 06-27-2022 Albumin/Globulin [Mass ratio] 1.1 {ratio} 0.9-2.4 [facility] Serum or plasma calcium dalia urement (mass/volume)Ordered By: Dr. Simon on 06-27-2022 Calcium [Mass/Vol] 9.1 mg/dL 8.5-10.1 [facility] Serum or plasma creatinine m easurement (mass/volume)Ordered By: Dr. Simon on 06-27-2022 Creatinine [Mass/Vol] 0.88 mg/dL 0.55-1.02 [facility] Comment on above: The validity of the calculated GFR & GFRAA in patients over 70 years has not been determined. Clinical correlation is essential. Serum or plasma urea nitroge n measurement (mass/volume)Ordered By: Dr. Simon on 06-27-2022 Urea nitrogen [Mass/Vol] 7 mg/dL 7-18 [facility] Thin prep Papanicolaou smear with manual screeningOrdered By: Dr. Simon on 06-27-2022 Thin prep Papanicolaou smear with manual screening 12 U/L 15-37 [facility] Thin prep Papanicolaou smear with manual screening 6 5-15 [facility] Thin prep Papanicolaou smear with manual screening 9.9 mg/L NO RANGE EST. [facility] Urine creatinine measurement (mass/volume)Ordered By: Dr. Simon on 06-27-2022 Creatinine (U) [Mass/Vol] 91.00 mg/dL NO RANGE EST. [facility] Absolute lymphocyte counton 12-19-2021 Lymphocytes Auto (Unsp spec) [#/Vol] 2.39 10*3/uL 0.83-4.51 [facility] Work Phone: Basophil percentageon 2021 Basophils/100 WBC (Bld) 0.8 % 0-1 [facility] Work Phone: Bilirubin [Mass/Vol] 0.40 mg/dL 0.20-1.00 [facility] Work Phone: [phone] Comment on above: For patients on eltr ombopag therapy, use of Dimension [place] TBIL is not recommended. Chloride [Moles/Vol] 102 mmol/L 98-107 [facility] Work Phone: Eosinophils/100 WBC (Bld) 1.5 % 0-5 [facility] Work Phone: Glucose [Mass/Vol] 114 mg/dL 74-106 [facility] Work Phone: Comment on above: Fasting Glucose resu lt from 100 to 125 mg/dL suggests IMPAIRED HOMEOSTASIS per A.D.A. criteria. Neutrophils (Bld) [#/Vol] 4.3 10*3/uL 2.0-7.7 [facility] Work Phone: Neutrophils/100 WBC (Bld) 57.6 % 47-70 [facility] Work Phone: Potassium [Moles/Vol] 4.0 mmol/L 3.5-5.1 [facility] Work Phone: [phone] Protein [Mass/Vol] 7.6 g/dL 6.4-8.2 [facility] Work Phone: [phone] Sodium [Moles/Vol] 138 mmol/L 136-145 [facility] Work Phone: WBC (Bld) [#/Vol] 7.5 10*3/uL 4.4-11.0 [facility]: Blood erythrocytes count (nu mber/volume)on 12-19-2021 RBC (Bld) [#/Vol] 4.71 10*6/uL 4.2-5.4 [facility]: Blood hemoglobin measurement (mass/volume)on 12-19-2021 Hemoglobin (Bld) [Mass/Vol] 13.8 g/dL 12.0-15.0 [facility] Work Phone: Blood lymphocytes/100 leukoc yteson 12-19-2021 Lymphocytes/100 WBC (Bld) 31.8 % 19-41 [facility] Work Phone: Blood monocytes/100 leukocyt eson 12-19-2021 Monocytes/100 WBC (Bld) 7.8 % 0-10 [facility] Work Phone: Blood platelet mean volumeon 12-19-2021 Platelet mean volume (Bld) [Entitic vol] 9.9 fL 6.2-12.0 [facility] Work Phone: Determination of erythrocyte mean corpuscular volume (MCV)on 12-19-2021 MCV (RBC) [Entitic vol] 90.4 fL 81-99 [facility] Work Phone: Hematocrit Auto (Bld) [Volum e fraction]on 12-19-2021 Hematocrit (Bld) [Volume fraction] 42.6 % 37-47 [facility] Work Phone: Laboratory - Chemistry and C hemistry - challengeon 12-19-2021 ALP [Catalytic activity/Vol] 80 U/L 45-117 [facility] Work Phone: ALT [Catalytic activity/Vol] 38 U/L 13-56 [facility] Work Phone: CO2 [Moles/Vol] 27.0 mmol/L 21.0-32.0 [facility] Work Phone: Globulin (S) [Mass/Vol] 3.7 g/dL 2.2-4.2 [facility] Work Phone: Urea nitrogen/Creatinine [Mass ratio] 8.7 mg/mg 10-20 [facility] Work Phone: Laboratory - Hematology and Cell countson 12-19-2021 Erythrocyte distribution width (RBC) [Entitic vol] 43.1 fL 35.1-43.9 [facility] Work Phone: Erythrocyte distribution width (RBC) [Ratio] 13.0 % 11.6-14.6 [facility] Work Phone: Immature granulocytes/100 WBC (Bld) 0.500 % 0.0-0.9 [facility] Work Phone: Comment on above: IG% - Immature Granu locytes (promyelocytes, myelocytes and metamyelocytes) > 1% indicates that a LEFT SHIFT is Present. MCH (RBC) [Entitic mass] 29.3 pg 27.0-32.0 [facility] Work Phone: Nucleated RBC/100 WBC (Bld) [Ratio] 0 % 0-5 [facility] Work Phone: MCHC Auto (RBC) [Mass/Vol]on 12-19-2021 MCHC (RBC) [Mass/Vol] 32.4 g/dL 32-36 [facility]: No Panel Informationon 12-19 Estimated GFR (MDRD) Amer 73 mL/min >60 [facility] Work Phone: Comment on above: GFR Calc Estimated GFR (MDRD) Non-Af Amer 61 mL/min >60 [facility] Work Phone: Comment on above: Non- GFR Calc Thyroid Stimulating Hormone (TSH) 2.38 uIU/mL 0.358-3.74 [facility] Work Phone: Platelets bldon 12-19-2021 Platelets (Bld) [#/Vol] 288 10*3/uL 150-450 [facility] Work Phone: Serum or plasma albumin dalia urement (mass/volume)on 12-19-2021 Albumin [Mass/Vol] 3.9 g/dL 3.2-5.0 [facility] Work Phone: Serum or plasma albumin/glob ulin mass ratioon 12-19-2021 Albumin/Globulin [Mass ratio] 1.1 {ratio} 0.9-2.4 [facility] Work Phone: Serum or plasma calcium dalia urement (mass/volume)on 12-19-2021 Calcium [Mass/Vol] 9.5 mg/dL 8.5-10.1 [facility] Work Phone: Serum or plasma creatinine m easurement (mass/volume)on 12-19-2021 Creatinine [Mass/Vol] 1.03 mg/dL 0.55-1.02 [facility] Work Phone: Comment on above: The validity of the calculated GFR & GFRAA in patients over 70 years has not been determined. Clinical correlation is essential. Serum or plasma urea nitroge n measurement (mass/volume)on 12-19-2021 Urea nitrogen [Mass/Vol] 9 mg/dL 7-18 [facility] Work Phone: Thin prep Papanicolaou smear with manual screeningon 12-19-2021 Thin prep Papanicolaou smear with manual screening 20 U/L 15-37 [facility] Work Phone: Thin prep Papanicolaou smear with manual screening 9 5-15 [facility] Work Phone: [facility] DIAG W THIERRY LTon 022 [facility]NOR SCREENING W TOMOon 11-04 [facility] Cervical or vagninal specime n microscopic examination by cytology stain (reported ason 10-18-2021 Cytology report Cyto stain Doc (Cvx/Vag) Comment . [facility] Work Phone: Comment on above: The Pap smear is a s creening test designed to aid in thedetection of premalignant and malignant conditions of theuterine cervix. It is not a diagnostic procedure andshould not be used as the sole means of detecting cervicalcancer. Both false-positive and false-negative reports dooccur. Detection in cervical specim en of any of human papilloma virus (HPV) 16, 18, 31, 33,on 10-18-2021 HPV 16+18+31+33+35+39+45+51+ 52+56+58+59+66+68 DNA Probe+sig amp Ql (Cvx) Negative Negative [facility] Work Phone: Comment on above: This nucleic acid am plification test detects fourteen high-risk HPV types (16,18,31,33,35,39,45,51,52,56,58,59,66,68)without differentiation.Performed at: - [address] [id number] Director: Nita Blount MD, Phone: [phone] at: =[facility] [id number] Director: Nita Blount MD, Phone: [phone] Laboratory - Cytologyon 09-21 [employer] T[employer] Cyto stain Nom (Cvx/Vag) [ID] Comment . [facility] Work Phone: Comment on above: Dixie Warren, Cytot echnologist (ASCP) Laboratory - Miscellaneous t estson 10-18-2021 Service comment (Unsp spec) [Interp] Comment . [facility] Work Phone: Comment on above: This liquid based Th inPrep(R) pap test was screened withthe use of an image guided system. Service comment (Unsp spec) [Interp] . . [facility] Work Phone: No Panel Informationon 10-18 Pathology report final diagnosis Narrative Comment . [facility] Work Phone: Comment on above: NEGATIVE FOR INTRAEP ITHELIAL LESION OR MALIGNANCY. Basophil percentageon 2021 Basophil percentage 0 SEEN /hpf 0-5 [facility] Work Phone: Bilirubin Test strip Ql (U)o n 09-13-2021 Bilirubin Ql (U) Negative Negative [facility] Work Phone: Culture, urineon 09-13-2021 Bacteria identified Cx Nom (U) Positive [facility] Work Phone: Ketones Test strip Ql (U)on 09-13-2021 Ketones Ql (U) Negative Negative [facility] Work Phone: Mucus LM Ql (Urine sed)on Mucus Ql (Urine sed) 0 SEEN /hpf [facility] Work Phone: Nitrite Test strip Ql (U)on 09-13-2021 Nitrite Ql (U) Negative Negative [facility] Work Phone: Protein Test strip Ql (U)on 09-13-2021 Protein Ql (U) Negative Negative [facility] Work Phone: Squamous epithelial cells de tection in urine sediment by light microscopyon 09-13-2021 Epithelial cells.squamous LM Ql (Urine sed) 0-5 SEEN /hpf 5-10 [facility] Work Phone: Urine blood detectionon 08-21 RBC Ql (U) Negative Negative [facility] Work Phone: RBC Ql (U) 0 SEEN /hpf 0-5 [facility] Work Phone: Urine clarityon 09-13-2021 Clarity (U) Clear Clear [facility] Work Phone: Urine color determinationon 09-13-2021 Color (U) Yellow Yellow [facility] Work Phone: Urine glucose detectionon Glucose Ql (U) Normal mg/dl Normal [facility] Work Phone: Urine leukocyte esterase det ection by dipstickon 09-13-2021 Leukocyte esterase Test strip Ql (U) Negative Negative [facility] Work Phone: Urine pHon 09-13-2021 pH (U) 6.0 [pH] 5.0 - 8.0 [facility] Work Phone: Urine sediment bacteria coun t by microscopy (number/high power field)on 09-13-2021 Bacteria LM.HPF (Urine sed) [#/Area] 0 /[HPF] None Seen [facility] Work Phone: Urine specific gravity measu rementon 09-13-2021 Specific gravity (U) [Rel density] 1.015 1.002-1.030 [facility] Work Phone: Urobilinogen Auto test strip Ql (U)on 09-13-2021 Urobilinogen Ql (U) Normal mg/dl Normal [facility] Work Phone: [facility] DIAGNOSTIC LTon 09-22-19 20 [facility] DIAGNOSTIC LT * * *Final Report* * * DATE OF EXAM: Sep 22 2019 9:51AM AAW 0621 - [facility] / PROCEDURE REASON: Abnormal ultrasound of breast * * * * Physician Interpretation * * * * #[id number] - [facility] UNILATERAL LEFT DIGITAL DIAGNOSTIC MAMMOGRAM WITH CAD: 09/22/2019 HISTORY: Post breast biopsy clip placement. RESULT: TECHNIQUE: The study was acquired using full field digital technology and interpreted from soft copy. Current study was also evaluated with a Computer Aided Detection (CAD). Comparison is made to exam dated: 09/06/2019 mammogram - [facility]. The tissue of left breast is heterogeneously dense. This may lower the sensitivity of mammography. There is a marker clip in the appropriate position in the left breast at 9 o'clock anterior depth. This marker clip placement is at the biopsy site. IMPRESSION: POST PROCEDURE MAMMOGRAM FOR MARKER PLACEMENT There was a successful marker clip placement in the left breast anterior depth. Leonardo martinez/jose:09/22/2019 10:50:19 Termite Exterminator Helper(s): RT Julia(Unique)(M), [employer] Mammogram BI-RADS: Post-procedure mammogram for marker placement Multiple national specialty organizations have released breast cancer screening guidelines for women at average risk for developing breast cancer - guidelines that are based on both evidence and opinion, yet differ on when to start and how often to screen for breast cancer. With representation from Breast Imaging, Internal Medicine, Women's Health, Family Medicine, and Medical/Surgical Oncology, the [facility] has carefully reviewed the data and reached the following consensus: 1) All women should engage in shared decision-making with their providers to decide when to start and how often to screen; 2) All women should have the opportunity to start screening mammography at age 40; 3) For women ages 45-55, we recommend annual screening mammograms; 4) For women ages 55 and over, we support both the transition from an annual to a biennial interval if this aligns more with patient's values and preferences, or continuation with annual screening; 5) All women should discuss with their providers when to stop screening mammograms. Program Associate: Jose Transcribe Date/Time: Sep 22 2019 9:44A Dictated by : LEONARDO CASTELAN MD This examination was interpreted and the report reviewed and electronically signed by: LEONARDO CASTELAN MD on Sep 22 2019 10:50AM EST Normal [facility] US BIOPSY BREAST LTon [facility] * * *Final Repor t* * * * * * SEE BOTTOM OF REPORT FOR ADDENDED TEXT * * * DATE OF EXAM: Sep 22 2019 10:00AM AAW 0597 - [facility] US BIOPSY BREAST LT / PROCEDURE REASON: Abnormal ultrasound of breast * * * * Physician Interpretation * * * * FINAL REPORT #[id number] - [facility] US BIOPSY BREAST LT ULTRASOUND GUIDED BIOPSY LEFT BREAST WITH MARKING DEVICE INSERTED AND POST MAMMOGRAPHIC, DIGITAL MAMMOGRAPHIC, AND ULTRASOUND IMAGIN09/22/2019 HISTORY: Ultrasound guided biopsy left breast. PATIENT CONSENT: Audible Time Out Time:922 Procedure Start Time:923 Procedure Stop Time:929 . Correlation is made to exam dated: 09/06/2019 [facility]. An ultrasound guided biopsy using real-time ultrasound was performed for the concerning lesion located in the left breast at 9 o'clock middle depth. This was described on the previous ultrasound report. The skin was prepped in the usual manner. Local anesthetic was administered to the access site. A skin balbir was made in the breast. The abnormality was approached from the lateral aspect. A 14 gauge biopsy needle was placed adjacent to the abnormality under ultrasound guidance. Once the needle was documented to be in the correct location, four specimens were obtained using a BARD biopsy device. A clip was inserted into the biopsy cavity. A skin closure strip was applied to the access site. Post procedure mammographic, digital mammographic, and ultrasound imaging demonstrates the location device at the targeted area. The specimens were sent to the laboratory for pathological analysis. IMPRESSION: ULTRASOUND GUIDED BIOPSY BENIGN Ultrasound guided biopsy of the lesion in the left breast at 9 o'clock middle depth was successful with no apparent post procedure complications. Pathology indicates benign fibroadenoma (FA). Pathology results are concordant with imaging findings. A follow-up in 6 months is recommended to demonstrate stability. Leonardo martinez/jose:09/27/2019 09:18:08 Termite Exterminator Helper(s): Dixie Guallpa R.D.M.S., [employer] Multiple national specialty organizations have released breast cancer screening guidelines for women at average risk for developing breast cancer - guidelines that are based on both evidence and opinion, yet differ on when to start and how often to screen for breast cancer. With representation from Breast Imaging, Internal Medicine, Women's Health, Family Medicine, and Medical/Surgical Oncology, the [facility] has carefully reviewed the data and reached the following consensus: 1) All women should engage in shared decision-making with their providers to decide when to start and how often to screen; 2) All women should have the opportunity to start screening mammography at age 40; 3) For women ages 45-55, we recommend annual screening mammograms; 4) For women ages 55 and over, we support both the transition from an annual to a biennial interval if this aligns more with patient's values and preferences, or continuation with annual screening; 5) All women should discuss with their providers when to stop screening mammograms. Program Associate: Jose Transcribe Date/Time: Sep 22 2019 9:00A Dictated by : LEONARDO CASTELAN MD This examination was interpreted and the report reviewed and electronically signed by: LEONARDO CASTELAN MD on Sep 22 2019 10:07AM EST This document has been addended by: LEONARDO CASTELAN MD on Sep 27 2019 9:18AM EST Normal [facility] Surgical Tissue Examon 09-21 Surgical Tissue Exam Test performed at [place] [address] NAME: SHEY BOONE REQUESTING: JAYMIE ROBLEDO MD COPY TO: [facility] RADIOLOGY FINAL DIAGNOSIS: CORE BIOPSY OF LEFT BREAST MASS (9 O'CLOCK, 2 CM FROM NIPPLE) - FIBROADENOMA. OPERATIVE PROCEDURE: Ultrasound guided left breast biopsy CLINICAL INFORMATION: Left breast mass 9 o'clock 2 cm FN, obtained 0925, formalin 0925, ribbon clip; left breast mass, possible fibroadenoma GROSS DESCRIPTION: 14G core x 4 Received in formalin labeled left breast mass, 9 o'clock, 2 cm from nipple (ribbon clip) are four cylindrical segments of white fibrofatty tissue ranging in length from 1.0 up to 3.0 cm. Each segment has a width of approximately 2 mm which are totally submitted in formalin in one cassette. Time obtained: 9:25 on 09-22-2019; time placed in formalin: 9:25 on 09-22-2019. ARH:pantera GARZA M.D. (Electronic signature on file) Signed out: 09/23/2019 15:58 PRINTED: 09/23/[address] [facility] Comment on above: Performed By: #### S URG #### [place] [address] Culture, urine Bacteria identified Cx Nom (U) Positive [facility] Work Phone: Vital Signs Date Time Vital Sign Value Performing Clinician Facility 02-23-2025 13:03-0400 Body height 157.[address] Kristina Simon MD Work Phone: [facility] 02-23-2025 13:03-0400 Body mass index (BMI) [Ratio] 20.2 kg/m2 Dr. Kristina Simon MD Work Phone: [facility] 02-23-2025 13:03-0400 Body weight 50.[address] Kristina Simon MD Work Phone: [facility] 02-23-2025 13:03-0400 Diastolic blood pressure 77 mm[Hg] Dr. Kristina Simon MD Work Phone: [facility] 02-23-2025 13:03-0400 Heart rate 77 /min Dr. Kristina Simon MD Work Phone: [facility] 02-23-2025 13:03-0400 Respiratory rate 17 /min Dr. Kristina Simon MD Work Phone: [facility] 02-23-2025 13:03-0400 SaO2% (BldA) [Mass fraction] 97 % Dr. Kristina Simon MD Work Phone: [facility] 02-23-2025 13:03-0400 Systolic blood pressure 113 mm[Hg] Dr. Kristina Simon MD Work Phone: [facility] 01-14-2023 15:47-0400 Body temperature 98.29 [degF] Rafa Gonsalves MD Work Phone: [facility] 01-14-2023 15:47-0400 Body weight 78.47 kg Rafa Gonsalves MD Work Phone: [facility] 01-14-2023 15:47-0400 Diastolic blood pressure 80 mm[Hg] Rafa Gonsalves MD Work Phone: [facility] 01-14-2023 15:47-0400 Heart rate 96 /min Rafa Gonsalves MD Work Phone: [facility] 01-14-2023 15:47-0400 Respiratory rate 16 /min Rafa Gonsalves MD Work Phone: [facility] 01-14-2023 15:47-0400 SaO2% (BldA) [Mass fraction] 97 % Rafa Gonsalves MD Work Phone: [facility] 01-14-2023 15:47-0400 Systolic blood pressure 122 mm[Hg] Rafa Gonsalves MD Work Phone: [facility] Encounters Encounter Date Encounter Type Care Provider Facility Start: 03-27-2025 chely Simon Facility:[facility] Start: 02-23-2025 End: 02-23-[address] Preethi Win MD -[facility] Work Phone: Start: 02-23-2025 End: 02-23-[address] Kristina Simon MD Work Phone: -[facility] Start: 01-20-2025 End: 01-20-[address] Kristina Simon MD Work Phone: -Laboratory [facility] Start: 01-20-2025 End: 01-20-[address] Kristina Simon MD -[facility] Start: 01-20-2025 End: 01-20-2025 ambulatory Kristina Simon Facility:[facility] Start: 07-22-2024 End: 07-22-2024 ambulatory Kristina Simon Facility:[facility] Start: 04-08-2024 End: 04-08-2024 ambulatory Lisy GUZMAN Facility:[facility] Start: 04-07-2024 End: 04-07-2024 ambulatory Kristina Simon Facility:[facility] Start: 10-01-2023 End: 10-01-2023 ambulatory [facility] Work Phone: Start: 10-01-2023 End: 10-01-2023 Patient encounter procedure [facility] Start: 04-03-2023 End: 04-03-2023 ambulatory [facility] Work Phone: Start: 04-03-2023 End: 04-03-2023 Patient encounter procedure [facility] Start: 01-14-2023 End: 01-14-2023 ambulatory KRISTINA SIMON Facility:[facility] Start: 01-14-2023 End: 01-14-2023 Patient encounter procedure Rafa Gonsalves MD Work Phone: [facility] Comment on above: Splinter of right garcia nd (Primary Dx) Start: 06-27-2022 End: 06-27-2022 ambulatory [facility] Work Phone: Start: 06-27-2022 End: 06-27-2022 Patient encounter procedure [facility] Start: 12-19-2021 End: 12-19-2021 Patient encounter procedure [facility] Start: 11-12-2021 End: 11-12-2021 Subsequent hospital visit by physician Diagnostic Mammo [facility] Mammogram Start: 11-07-2021 Documentation procedure Mammog keshav Coordinator [facility] Start: 11-07-2021 Letter encounter Mammography Coordinator [facility] Department Start: 11-07-2021 End: 11-07-2021 Subsequent hospital visit by physician Screen Mammo [facility] Mammogram Start: 11-04-2021 Documentation procedure Mammog keshav Coordinator [facility] Start: 11-04-2021 Letter encounter Mammography Coordinator [facility] Start: 11-04-2021 End: 11-04-2021 Subsequent hospital visit by physician Screen Mammo [facility] Mammogram Start: 10-18-2021 End: 10-18-2021 [facility] Start: 09-13-2021 End: 09-13-2021 [facility] Procedures Date Procedure Procedure Detail Performing Clinician Start: 11-12-2021 MAYNOR DIAG W THIERRY LT [facility] Provider Start: 11-07-2021 Mammography Screen [facility]st r Start: 11-04-2021 MAYNOR SCREENING W THIERRY [facility] f Provider Start: 11-04-2021 Mammography Screen [facility] Start: 09-13-2021 Urine culture Urine culture Plan of Treatment Date Care Activity Detail Author Start: 01-14-2033 Urine microalbumin profile DTA P,TDAP,TD (3 - Td or Tdap) [facility] Start: 06-07-2024 HPV TESTING HPV TESTING [facility] Start: 06-07-2024 PAP TESTING PAP TESTING [facility] Start: 02-20-2023 Influenza vaccination INFLUENZA (#1) [facility] Start: 11-07-2022 Mammography MAMMOGRAM [facility] Start: 11-04-2022 Mammography MAMMOGRAM [facility] Start: 2022 SHINGRIX VACCINE (1 of 2) SHINGRIX V ACCINE (1 of 2) [facility] Start: 06-22-2022 DEPRESSION ASSESSMENT DEPRESSION ASS ESSMENT [facility] Start: 02-20-2022 Influenza vaccination INFLUENZA (Sea son Ended) [facility] Start: 06-05-2021 COVID-19 VACCINE (3 - Booster for Pfizer series) COVID-19 VACCINE (3 - Booster for Pfizer series) [facility] Start: 03-09-2021 ANNUAL PCP TEAM DIRECTOR OF HOSPITALITY LOPEZ DISEASE VISIT ANNUAL PCP TEAM CHRONIC DISEASE VISIT [facility] Start: 02-28-2021 COVID-19 VACCINE (3 - Pfizer series) COVID-19 VACCINE (3 - Pfizer series) [facility] Start: 05-01-2019 Urine microalbumin profile DTA P,TDAP,TD (2 - Td or Tdap) [facility] Start: 2017 COLOGUARD (FIT-DNA) COLOGUARD (FIT-D NA) [facility] Start: 2017 Colonoscopy COLONOSCOPY [facility] Start: 2017 COLORECTAL CANCER SCREENING COLORECTAL CANCER SCREENING [facility] Start: [address] COLONOGRAPHY [facility] Start: 2017 FECAL OCCULT BLOOD FECAL OCCULT BLOO D [facility] Start: 2017 SIGMOIDOSCOPY SIGMOIDOSCOPY [facility] Start: 10-24-2009 Hemoglobin A1c/Hemoglobin.total in Blood HBA1C [facility] Start: 10-10-1991 HEPATITIS B (1 of 3 - Risk 3-dose series) HEPATITIS B (1 of 3 - Risk 3-dose series) [facility] Start: 1990 Hepatitis B surface antibody level LDL CHOLESTEROL [facility] Start: 1990 HEPATITIS C SCREENING HEPATITIS C SC REENING [facility] Start: 1988 ONE PNEUMOVAX PRIOR TO AGE 67 ONE PNEUMOVAX PRIOR TO AGE 67 [facility] Start: 1984 Adult depression scr eening assessment DEPRESSION SCREENING [facility] Start: 1982 3 comp foot exam completed DIABETIC FOOT EXAM [facility] Start: 1982 Hepatitis B screening URINE AL BUMIN:CREATININE RATIO [facility] Start: 1982 Hepatitis C antibody , confirmatory test DILATED RETINAL EXAM [facility] Start: 1978 PNEUMOCOCCAL (1 - PCV) PNEUMOCOCCAL (1 - PCV) [facility] Start: 1972 HEPATITIS B (1 of 3 - 3-dose series) HEPATITIS B (1 of 3 - 3-dose series) [facility] Immunizations Immunization Date Immunization Notes Care Provider Hien puentes 01-14-2023 tetanus toxoid, redu crystal diphtheria toxoid, and acellular pertussis vaccine, adsorbed Rafa Gonsalves MD Work Phone: [facility] Work Phone: 03-09-2020 influenza, live, intranasal, quadrivalent Screen [facility] 05-01-2009 rubella virus vaccine Screen [facility] 05-01-2009 tetanus toxoid, redu crystal diphtheria toxoid, and acellular pertussis vaccine, adsorbed Screen [facility] Payers Date Payer Category Payer Medicaid [id number] 2024 Self-pay [id number] 2021 Medicaid [id number] 2021 Medicare [id number] 2021 Medicare [employer] MEDICARE [id number] 2021-Present [phone] [address] [place] [address] Medicare [id number] 2021 Unknown [id number] Medicare [id number] Unknown [employer] [id number] Unknown [id number] Unknown [id number] Unknown [id number] Unknown [id number] Unknown [id number] Unknown [id number] Social History Date Type Detail [facility] Work Phone: Start: 1970 Sex Assigned At Female [facility] Start: 01-14-2023 [facility] Work Phone: Start: 03-09-2020 End: 01-14-2023 Alcohol intake Current non-drinker of alcohol (finding) [facility] Start: 1970 Sex Assigned At Not on file [facility] Start: 10-25-2021 End: 11-12-2021 Exposure to SARS-CoV-2 (event) Not sure [facility] Start: 01-14-2023 Tobacco use and exposure Smokeless tobacco non-user [facility] Work Phone: Start: 01-14-2023 History of Social function [facility] Start: 01-14-2023 Tobacco use panel [facility] Start: 02-23-2025 [facility] Medical Equipment Procedure Code Equipment Code Equipment Original Text Equipment Identifier Dates Start: 01-16-2009 Comment on above: to test qid- Accuche ck test strips appropriate for patient's monitor to test qid Clinical Notes 10-04-2008 to 01-14-2023 Rafa Gonsalves MD - 01/14/2023 3:56 PM EDTCynthbalwinder [place]anes Mammo Tech - 11/12/2021 11:30 AM EDTCynthbalwinder [place] Mammo [facility] - 11/07/2021 9:50 AM EDTCynthMagalie Ortiz - 11/04/2021 9:30 AM EDT Note Date & Type Note Facility 01-14-2023 Note HNO ID: [id number] Author: Rafa Gonsalves MD Service: ? Author Type: Physician Type: Progress Notes Filed: 01/14/2023 4:28 PM Note Text: Patient presents with: Foreign Body: splinter in right hand x last night HPI: Got a wood splinter from a hand rail last night. Her daughter tried to remove the splinter from her right hand. Last tetanus booster 2008. MEDICATIONS: metFORMIN ER (GLUCOPHAGE XR) 750 mg 24 hr tablet pravastatin (PRAVACHOL) 40 mg tablet sertraline (ZOLOFT) 50 mg tablet bupropion hcl(WELLBUTRIN XL 300 MG 24 HR TAB) Take one(1) tablet daily. blood sugar diagnostic(ACCU-CHEK ADVANTAGE TEST STRIPS) to test qid- Accucheck test strips appropriate for patient's monitor LANCETS to test qid ALLERGIES: ALLERGIES Allergen Reactions Codeine HEART PALPITATIONS VITALS: BP 122/80 Pulse 96 Temp 36.8 ?C (98.3 ?F) Resp 16 Wt 78.5 kg (173 lb) LMP 06/23/2019 (Within Days) SpO2 97% BMI 34.94 kg/m? PE: Pleasant, in no acute distress, blind, ambulates with cane and assistance. Accompanied by her trimming caser. Hand: right. 4mm splinter in the palm, visible through the skin. Mild erythema surrounding the splinter for 1cm and trace victor m 1mm bordering it. Procedure: Foreign body removal. Site cleansed with isopropyl alcohol pad. 18-gauge needle used to open the skin over the splinter. 4 mm x 1 mm foreign body removed with forceps. Scant purulent discharge. Wound dressed with bacitracin on an adhesive bandage. ASSESSMENT/PLAN: 1. Splinter of right hand - ICD9: 914.6, ICD10: S60.551A Successful removal of foreign body. - TDAP VACCINE, AGE 7+ YR (ADACEL, BOOSTRIX) Follow up with signs of infection such as increasing redness, pain, swelling, purulent drainage, or fever/malaise. Rafa Gonsalves MD [facility] 01-14-2023 History of Presen t illness Narrative Patient presents with: Foreign Body: splinter in right hand x last night HPI: Got a wood splinter from a hand rail last night. Her daughter tried to remove the splinter from her right hand. Last tetanus booster 2008. MEDICATIONS: metFORMIN ER (GLUCOPHAGE XR) 750 mg 24 hr tablet pravastatin (PRAVACHOL) 40 mg tablet sertraline (ZOLOFT) 50 mg tablet bupropion hcl(WELLBUTRIN XL 300 MG 24 HR TAB) Take one(1) tablet daily. blood sugar diagnostic(ACCU-CHEK ADVANTAGE TEST STRIPS) to test qid- Accucheck test strips appropriate for patient's monitor LANCETS to test qid ALLERGIES: ALLERGIES Allergen Reactions Codeine HEART PALPITATIONS VITALS: BP 122/80 Pulse 96 Temp 36.8 C (98.3 F) Resp 16 Wt 78.5 kg (173 lb) LMP 06/23/2019 (Within Days) SpO2 97% BMI 34.94 kg/m PE: Pleasant, in no acute distress, blind, ambulates with cane and assistance. Accompanied by her trimming caser. Hand: right. 4mm splinter in the palm, visible through the skin. Mild erythema surrounding the splinter for 1cm and trace victor m 1mm bordering it. Procedure: Foreign body removal. Site cleansed with isopropyl alcohol pad. 18-gauge needle used to open the skin over the splinter. 4 mm x 1 mm foreign body removed with forceps. Scant purulent discharge. Wound dressed with bacitracin on an adhesive bandage. ASSESSMENT/PLAN: 1. Splinter of right hand - ICD9: 914.6, ICD10: S60.551A Successful removal of foreign body. - TDAP VACCINE, AGE 7+ YR (ADACEL, BOOSTRIX) Follow up with signs of infection such as increasing redness, pain, swelling, purulent drainage, or fever/malaise. Rafa Gonsalves MD documented in this encounter [facility] 11-12-2021 History of Presen t illness Narrative Radiology Service Progress Note PATIENT NAME: Shey Boone DATE OF SERVICE: November 12, 2021 TIME: 11:20 AM PATIENT IDENTITY VERIFICATION COMPLETED USING TWO (2) IDENTIFIERS: Name and Date of confirmed by patient verbally. FALL SCREENING: Has the patient had 2 falls in the last year or 1 fall with injury or currently using an Ambulatory Assistive Device (Walker, Cane, Wheelchair, Crutches, etc.)? No PATIENT GENDER DATA: Female. status: : No status: NO. PATIENT RELEVANT IMPLANT DATA REVIEWED: Not Applicable RADIOLOGY DEPARTMENT: Mammography PERIPHERAL IV DATA: Not applicable SIGNED BY: Jacqueline SofiaFrameri November 12, 2021 11:20 AM documented in this encounter [facility] 11-07-2021 History of Presen t illness Narrative Radiology Service Progress Note PATIENT NAME: Shey Boone DATE OF SERVICE: November 07, 2021 TIME: 9:40 AM PATIENT IDENTITY VERIFICATION COMPLETED USING TWO (2) IDENTIFIERS: Name and Date of confirmed by patient verbally. FALL SCREENING: Has the patient had 2 falls in the last year or 1 fall with injury or currently using an Ambulatory Assistive Device (Walker, Cane, Wheelchair, Crutches, etc.)? No PATIENT GENDER DATA: Female. status: : No status: NO. PATIENT RELEVANT IMPLANT DATA REVIEWED: Not Applicable RADIOLOGY DEPARTMENT: Mammography PERIPHERAL IV DATA: Not applicable SIGNED BY: Jacqueline Sofiao Flowboard November 07, 2021 9:40 AM documented in this encounter [facility] 11-07-2021 Miscellaneous Notes November 07, 2021 PID: [id number] Shey Boone [address] [place] [address] Dear Ms. oBone, Your recent breast imaging exam on 11/07/2021 showed a possible finding that requires additional imaging studies for a complete evaluation. Most such findings are probably benign (not cancer). Your mammogram demonstrates that you have dense breast tissue, which could hide abnormalities. Dense breast tissue, in and of itself, is a relatively common condition. Therefore, this information is not provided to cause undue concern; rather, it is to raise your awareness and promote discussion with your health care provider regarding the presence of dense breast tissue in addition to other risk factors. If you have a healthcare provider who ordered/prescribed your screening mammogram: Please call [phone] or [phone]: [phone] to schedule an appointment for your additional imaging (if you have not already done so). If you DO NOT have a healthcare provider (ie you did not have an order/prescription for your screening mammogram): Please call to schedule an appointment for your additional imaging (if you have not already done so). You must have an order/prescription from your physician when calling to schedule your appointment. If your order/prescription is not electronic, you must bring the hard copy with you on the day of your exam to avoid delays. Your imaging studies and reports are kept on file at [facility] as part of your permanent medical record, and are available for your continuing care. Thank you for allowing us to help in meeting your health care needs. Sincerely, Dr. Daniel Interpreting Radiologist [facility] (Additional imaging) documented in this encounter [facility] 11-04-2021 Miscellaneous Notes November 04, 2021 PID: [id number] Shey Boone [address] [place] [address] Dear Ms. Boone, Your recent breast imaging exam on 11/04/2021 showed a possible finding that requires additional imaging studies for a complete evaluation. Most such findings are probably benign (not cancer). Your mammogram demonstrates that you have dense breast tissue, which could hide abnormalities. Dense breast tissue, in and of itself, is a relatively common condition. Therefore, this information is not provided to cause undue concern; rather, it is to ra ise your awareness and promote discussion with your health care provider regarding the presence of dense breast tissue in addition to other risk factors. If you have a healthcare provider who ordered/prescribed your screening mammogram: Please call [phone] or EXT: [phone] to schedule an appointment for your additional imaging (if you have not already done so). If you DO NOT have a healthcare provider (ie you did not have an order/prescription for your screening mammogram): Please call to schedule an appointment for your additional imaging (if you have not already done so). You must have an order/prescription from your physician when calling to schedule your appointment. If your order/prescription is not electronic, you must bring the hard copy with you on the day of your exam to avoid delays. Your imaging studies and reports are kept on file at [facility] as part of your permanent medical record, and are available for your continuing care. Thank you for allowing us to help in meeting your health care needs. Sincerely, Dr. Daniel Interpreting Radiologist [facility] (Additional imaging) documented in this encounter [facility] 11-04-2021 History of Presen t illness Narrative Radiology Service Progress Note PATIENT NAME: Shey Boone DATE OF SERVICE: November 04, 2021 TIME: 9:41 AM PATIENT IDENTITY VERIFICATION COMPLETED USING TWO (2) IDENTIFIERS: Name and Date of confirmed by patient verbally. FALL SCREENING: Has the patient had 2 falls in the last year or 1 fall with injury or currently using an Ambulatory Assistive Device (Walker, Cane, Wheelchair, Crutches, etc.)? No PATIENT GENDER DATA: Female. status: : No status: NO. PATIENT RELEVANT IMPLANT DATA REVIEWED: Not Applicable RADIOLOGY DEPARTMENT: Mammography PERIPHERAL IV DATA: Not applicable SIGNED BY: Magalie Sofia November 04, 2021 9:41 AM documented in this encounter [facility] 10-18-2021 Note [facility] Work Phone: Pap Smear Specimen Adequacy October 18, 2021 4:20pm Comment . Satisfactory for evaluation. No endocervical component is identified. Comment on above: Satisfactory for royal luation. No endocervical component is identified. 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) 10/04/2008 06/05/2009 Unspecified high-risk 10/04/2008 06/05/2009 documented as of this encounter (statuses as of 11/06/2021) [facility] History of Past illness Narrative* Problem Noted Date Resolved Date Diabetes mellitus, 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) 10/04/2008 06/05/2009 Unspecified high-risk 10/04/2008 06/05/2009 documented as of this encounter (statuses as of 11/08/2021) [address]15-2009 History of Past illness Narrative* Problem Noted Date Resolved Date Diabetes mellitus, 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) 10/04/2008 06/05/2009 Unspecified high-risk 10/04/2008 06/05/2009 documented as of this encounter (statuses as of 11/09/2021) [address]15-2009 History of Past illness Narrative* Problem Noted Date Resolved Date Diabetes mellitus, 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) 10/04/2008 06/05/2009 Unspecified high-risk 10/04/2008 06/05/2009 documented as of this encounter (statuses as of 11/13/2021) [address]15-2009 History of Past illness Narrative* Problem Noted Date Diagnosed Date Resolved Date Diabetes mellitus, 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) 10/04/2008 06/05/2009 Unspecified high-risk 10/04/2008 06/05/2009 documented as of this encounter (statuses as of 01/15/2023) [facility] noteNo assessment information availableWSalem [facility] Work Phone: Evaluation note* Diagnosis Splinter of right hand- Primary [facility])No reason for referral information availableWSalem Regional Medical Center Work Phone: Summary Purpose Family History No Family History Records Found Relationship Condition Age at Onset Recorded Date/T magalie daughter Diabetes mellitus Unknown grandmother Cardiac disease Unknown Advance Directives No Advanced Directives Records FoundNo Advanced Directives Records FoundNo Advanced Directives Records Found Chief Complaint and Reason for Visit Chief Complaint Admit Date COLONOSCOPY February 23, 2025 12:32pm Additional Source Comments INFORMATION SOURCE (unrecogn ized section and content) DATE CREATED AUTHOR 09/27/2019 [facility] DATE CREATED AUTHOR AUTHOR'S ORGANIZ ATION 01/15/2023 [facility] DATE CREATED AUTHOR AUTHOR'S ORGANIZ ATION 03/12/2025 [facility] Goals (unrecognized section and content) Goals may be documented in a n alternate sectionGoals may be documented in an alternate sectionGoals may be documented in an alternate sectionGoals may be documented in an alternate sectionGoals may be documented in an alternate sectionGoals may be documented in an alternate sectionGoals may be documented in an alternate sectionGoals may be documented in an alternate section Source Comments (unrecognize d section and content) In the event this informatio n is protected by the Federal Confidentiality of Alcohol and Drug Abuse Patient Records regulations: The Federal rules restrict any use of the information to criminally investigate or prosecute any alcohol or drug abuse patient.[facility] the event this information is protected by the Federal Confidentiality of Alcohol and Drug Abuse Patient Records regulations: The Federal rules restrict any use of the information to criminally investigate or prosecute any alcohol or drug abuse patient.[facility] HospitalIn the event this information is protected by the Federal Confidentiality of Alcohol and Drug Abuse Patient Records regulations: The Federal rules restrict any use of the information to criminally investigate or prosecute any alcohol or drug abuse patient.[facility] the event this information is protected by the Federal Confidentiality of Alcohol and Drug Abuse Patient Records regulations: The Federal rules restrict any use of the information to criminally investigate or prosecute any alcohol or drug abuse patient.[facility] the event this information is protected by the Federal Confidentiality of Alcohol and Drug Abuse Patient Records regulations: The Federal rules restrict any use of the information to criminally investigate or prosecute any alcohol or drug abuse patient.[facility] Care Teams (unrecognized sec tion and content) Mri Technician Relationship Specialty Start Date End Date Kristina Simon MD PCP - General Family Practice 06/18/11 Mri Technician Relationship Specialty Start Date End Date Kristina Simon MD PCP - General Family Practice 06/18/11 Mri Technician Relationship Specialty Start Date End Date Kristina Simon MD PCP - [facility] Practice 06/18/11 Mri Technician Relationship Specialty Start Date End Date Kristina Simon MD PCP - [facility] 06/18/11 Team Status: Active Member Role Status Dates Dr. Kristina Simon MD Family Provider Active Dr. Kristina Simon MD Primary Care Provider Active Team Status: Inactive Member Role Status Dates Dr. Kristina Simon MD Primary Care Provider, Attending Loly cunningham Active Mri Technician Relationship Specialty Start Date End Date Kristina Simon MD PCP - [facility] 06/18/11 Team Status: Active Member Role/Relationship Status Dates Dr. Kristina Simon MD Family Provider Active Dr. Kristina Simon MD Primary Care Provider Active Team Status: Inactive Member Role/Relationship Status Dates Dr. Kristina Simon MD Primary Care Provider Active Start: January 20, 2025 End: January 20, 2025 Dr. Kristina Simon MD Attending Provider Active St art: January 20, 2025 End: January 20, 2025 Team Status: Inactive Member Role/Relationship Status Dates Dr. Kristina Simon MD Primary Care Provider Active Start: February 23, 2025 End: February 23, 2025 Dr. Kristina Simon MD Referring Provider Active St art: February 23, 2025 End: February 23, 2025 Dr. Preethi Win MD Attending Provider Active Start: February 23, 2025 End: February 23, 2025 Reason for Visit (unrecogniz ed section and content) Reason Comments Foreign Body splinter in right garcia nd x last night FOR RECORDS PERTAINING TO PATIENTS WHO ARE OR HAVE BEEN ENROLLED IN A CHEMICAL DEPENDENCY/SUBSTANCEABUSE PROGRAM, SOME INFORMATION MAY BE OMITTED. This clinical summary was aggregated from multiple sources. Caution should be exercised in using it in the provision of clinical care. This summary normalizes information from multiple sources, and as a consequence, information in this document may materially change the coding, format and clinical context of patient data. In addition, data may be omitted in some cases. CLINICAL DECISIONS SHOULD BE BASED ON THE PRIMARY CLINICAL RECORDS. [facility]. provides no warranty or guarantee of the accuracy or completeness of information in this document.
[2025-03-27] MEDS: Lactated Ringers 1,000 ML 15 ML IV (07:35)
--- NOTE | 2025-03-27 08:00 | PRE.ANES_ITS ---
ASA Classification* ASA Classification ASA Classification: 2 Assessment & Plan Anesthesia* Anesthesia Assessment Anesthesia Assessment: Discussed sedation and/or anesthesia options, risks, benefits, and alternatives with patient/parents/legal guardian/POA. Questions invited. The patient/parents/legal guardian/POA seems to understand and agrees to proceed with anesthesia plan. Reviewed the physical assessment, medical history, allergy history and patient home medications list prior to surgery/procedure/anesthetic and documented any changes. Performed airway and anesthesia risk assessments. Anesthesia Type Anesthesia Type: MAC History Source History Obtained from:: Patient and Chart Anesthesia Focused Assessment* Temperature: 97.8 F Pulse Rate: 70 Blood Pressure: 120/73 Respiratory Rate: 16 Pulse Ox: 100 Oxygen Delivery Method: Room Air Airway Assessment Mouth opens: >3 cm Mallampati Score: III Teeth Condition: Chipped/Broken (Patient has a chipped and capped #8.) and Missing (Patient has several missing teeth. Rest are tight.) Neck Range of motion (ROM): Limited ROM (Somewhat Decreased) Labs Anesthesia Preop lab: CBC WBC, (4.4-11.0) 6.2 K/mm3 01/20/25, : RBC, (4.2-5.4) 4.47 M/mm3 01/20/25, : Hgb, (12.0-15.0) 13.0 g/dL 01/20/25, Hct, (37-47) 40.5 % 01/20/25, Plt Count, (150-450) 229 K/mm3 01/20/25, : CHEMISTRY Potassium, (3.3-5.1) 3.9 mmol/L 01/20/25, : Sodium, (133-145) 140 mmol/L 01/20/25, : BUN, (4-19) 8 mg/dL 01/20/25, : Creatinine, (0.70-1.20) 0.90 mg/dL 01/20/25, : Glucose, (70-99) 77 mg/dL 01/20/25, : TSH, (0.358-3.740) 3.520 uIU/mL 04/07/24, 10:51 COAG Pre-Assessment Diagnosis/Proposed Procedure Planned Operative Procedure(s): Colonoscopy Anesthesia History Anesthesia History - chief diversity officer: Anesthesia History - chief diversity officer Hx Hospitalization No 03/27/25 07:21 Any Problems With Anesthesia No 03/27/25 07:21 Cholinesterase deficiency No 03/27/25 07:21 You/Your Family Experience No 03/27/25 07:21 fever (hyperthermia) with Relationship Recent Exposure to Contagious No 03/27/25 07:36 Disease Does patient have nerve No 03/27/25 07:21 stimulator Patient instructed to have device shut off --Does patient have Pacemaker No 03/27/25 07:36 or ICD? When Was Last Pacemaker Check QUESTION #4 FULL TEXT: You/Your Family Experience fever (hyperthermia) with Anesthesia Last Oral Intake Last Oral intake: Last Oral Intake NPO since 00:00 03/27/25 07:36 Meds taken in AM with sips of water? Meds patient instructed to take am of surgery PONV PONV - chief diversity officer: PONV - chief diversity officer Female Yes 03/23/25 08:34 HX of Motion Sickness No 03/23/25 08:34 HX of N/V After Surgery No 03/23/25 08:34 Non-Smoker Yes 03/23/25 08:34 Duration of Surgery greater No 03/23/25 08:34 than 60 minutes Number of Risk Factors 2 03/23/25 08:34 PONV Score Moderate Risk 03/23/25 08:34 Height & Weight Height & Weight: Anesthesia: Height & Weight Height 4 ft 10 in 03/27/25 07:36 Weight: 50.349 kg 03/27/25 07:36 Body Mass Index (BMI) 23.1 03/27/25 07:36 Respiratory Assessment Respiratory Assessment - chief diversity officer: Respiratory Tract Infection Hx - chief diversity officer Hx Respiratory Tract Infection No 03/27/25 07:21 STOP Sleep Apnea STOP Sleep Apnea - chief diversity officer: STOP Sleep Apnea - chief diversity officer Hx Hypertension No 03/27/25 07:21 Hx Sleep Apnea No 03/27/25 07:21 CPAP BIPAP Do you snore loudly (louder No 03/27/25 07:21 than talking or can be heard Do you often feel tired/ No 03/27/25 07:21 fatigued/ sleepy during daytime? Has anyone observed you stop No 03/27/25 07:21 breathing during sleep? STOP Results Negative 03/27/25 07:23 QUESTION #5 FULL TEXT : Do you snore loudly (louder than talking or can be heard through closed doors)? Tobacco Use History Tobacco Use History - chief diversity officer: Tobacco Use History - chief diversity officer Tobacco Use Smoking Status Never smoker 03/27/25 07:21 Hx Tobacco Use No 03/23/25 08:34 Years Smoking Packs Smoked per Day Smoking Cessation Date was within the last 15 years Hx Smoking Cessation Date Hx Smoking Cessation Counseling Hematologic Medial History Hematologic Hx - chief diversity officer: Hematologic Medical Hx - school psychology specialist Hx of Blood Transfusion No 03/23/25 08:34 Hx of Transfusion in last 3 No 03/23/25 08:34 Months Date of Last Transfusion (if within last 3 months) Ever experience any problems No 03/23/25 08:34 with transfusion(s)? Specify any problems Hx of Preganancy in last 3 No 03/23/25 08:34 Months Nurse Filling Out Transfusion JZOLLINGE 03/23/25 08:34 & Questions: Date: 03/23/25 03/23/25 08:34 Time: 08:36 03/23/25 08:34 Patient unable to answer at this time (ie. confused, unrespo /Reproduction History /Reproductive History - chief diversity officer: /Reproductive Hx- chief diversity officer Hx Now No 03/27/25 07:21 Gestational Age (in weeks): EDC: Hx Hx Para Hx Section SAB No 03/23/25 08:34 Active Medications Active Medications: Current Medications Generic Name Dose Route Start Last Admin Trade Name Freq PRN Reason Stop Dose Admin Lactated Ringer's 1,000 mls @ 15 mls/hr 03/27/25 07:15 03/27/25 07:35 IV 15 mls/hr .Q48H JENNIFER Administration PFSH Medical History Vision abnormalities Dietary restriction Non-smoker Anxiety Depression Diabetes Home Medications ?Medication ?Instructions ?Recorded ?Last Taken ?Type bupropion HCl 100 mg tablet,12 hr 100 mg PO QAM Unknown History sustained-release (Wellbutrin SR) multivitamin 1 tab PO QAM 02/23/25 Unknow n History sertraline 50 mg tablet 50 mg PO QDAY 02/23/25 Unkno wn History tirzepatide 2.5 mg/0.5 mL 2.5 mg subcut QWEEK 02/23/25 03/17/25 History subcutaneous pen injector (Mounjaro) cholecalciferol (vitamin D3) 25 25 mcg PO DAILY Unknown History mcg (1,000 unit) tablet hydroxyzine HCl 10 mg tablet 10 mg PO BID 03/23/25 Unk nown History potassium citrate 5 mEq (540 mg) 540 mg PO .qd 5 Unknown History tablet,extended release rosuvastatin 20 mg tablet 20 mg PO QHS 03/23/25 Unknow n History Allergy/AdvReac Type Severity Reaction Status Date / Time codeine Allergy Mild Other Verified 03/27/25 07:34 Family History Daughter Diabetes Grandmother Heart disease Surgical History delivery delivered Social History Smoking Status: Never smoker alcohol intake: current alcohol intake frequency: a few times a month additional social history: Vapes CBD oil Review of Systems (Anesthesia) ROS Narrative System reviewed and no additional complaints, except as documented.
--- NOTE | 2025-03-27 08:57 | OP.PROVAT_ITS ---
03/27/2025 Nico Simon [address] [place] [address] Re : Colonoscopy procedure for Shey Lemus Dear Dr. Simon This procedure was performed on Thursday, March 27, 2025. My impressions and recommendations are as follows: Impressions : - The entire examined colon is normal on direct and retroflexion views. - No specimens collected. Recommendations : - Discharge patient to home. - Resume previous diet. - Continue present medications. - Repeat colonoscopy in 10 years for screening purposes. My findings are described in the full procedure note, which is enclosed. If I can be of further assistance, please feel free to contact me at Doctor phone number(s): , Work: . Sincerely, MD Preethi Mitchell MD 03/27/2025 8:56:37 AM This report has been signed electronically.
--- NOTE | 2025-03-27 08:57 | OP.COLON_ITS ---
Patient Name: Shey Lemus Procedure Date: 03/27/2025 8:31 AM Date of : 1970 Age: 54 Procedure: Colonoscopy Indications: Screening for colorectal malignant neoplasm Providers: Preethi Win MD Referring MD: Nico Simon Medicines: Monitored Anesthesia Care Patient Profile: This is a 54 year old female. Last Colonoscopy: none. The patient's first colonoscopy is today. Complications: No immediate complications. Procedure: Pre-Anesthesia Assessment: - Prior to the procedure, a History and Physical was performed, and patient medications and allergies were reviewed. The patient's tolerance of previous anesthesia was also reviewed. The risks and benefits of the procedure and the sedation options and risks were discussed with the patient. All questions were answered, and informed consent was obtained. Prior Anticoagulants: The patient has taken no anticoagulant or antiplatelet agents. ASA Grade Assessment: Per anesthesia. After reviewing the risks and benefits, the patient was deemed in satisfactory condition to undergo the procedure. After I obtained informed consent, the scope was passed under direct vision. Throughout the procedure, the patient's blood pressure, pulse, and oxygen saturations were monitored continuously. The Colonoscope was introduced through the anus and advanced to the cecum, identified by the appendiceal orifice, ileocecal valve and palpation. The colonoscopy was performed without difficulty. The patient tolerated the procedure well. The quality of the bowel preparation was good. Scope In: 8:40:35 AM Scope Withdrawal Time 0 hours 6 minutes 42 seconds Scope Out: 8:52:39 AM Total Procedure Duration Time 0 hours 12 minutes 4 seconds Findings: The perianal and digital rectal examinations were normal. The entire examined colon appeared normal on direct and retroflexion views. Impression: - The entire examined colon is normal on direct and retroflexion views. - No specimens collected. Recommendation: - Discharge patient to home. - Resume previous diet. - Continue present medications. - Repeat colonoscopy in 10 years for screening purposes. Procedure Code(s): --- Professional --- G0121, PT, Colorectal cancer screening; colonoscopy on individual not meeting criteria for high risk Diagnosis Code(s): --- Professional --- Z12.11, Encounter for screening for malignant neoplasm of colon CPT copyright 2021 [employer]. All rights reserved. The codes documented in this report are preliminary and upon inspector and mender review may be revised to meet current compliance requirements. MD Preethi Mitchell MD 03/27/2025 8:56:37 AM This report has been signed electronically. Number of Addenda: 0 Note Initiated On: 03/27/2025 8:31 AM
--- NOTE | 2025-03-27 09:01 | PCM.POST.ANE ---
Anesthesia: Postop Eval I Current Vital Signs Temperature: 97 F Pulse Rate: 57 Blood Pressure: 111/65 Respiratory Rate: 16 Pulse Ox: 100 Oxygen Delivery Method: Room Air Assessment Airway patent: Yes Spontaneous unlabored respirations: Yes Mental status: Asleep nausea: No Vomiting: No Anesthesia Complication: No Fluid Hydration Crystalloid volume administer (ml): 600 Total IV fluid infused: 600 Progress Note Anesthesia document: Postop Eval 1 completed: Yes
--- NOTE | 2025-03-27 12:31 | PCM.POSTANE2 ---
Anesthesia Postop Eval I Sum Postop Eval Completion status Anesthesia document: Postop Eval 1 completed: Yes Anesthesia Postop Eval I Summary Anesthesia Postop Eval I Summary: Anesthesia Postop Eval I: Assessment Summary Airway patent Yes 03/27/25 09:02 [email or web address] Spontaneous unlabored Yes 03/27/25 09:02 [email or web address] respirations Mental status Asleep 03/27/25 09:02 [email or web address] nausea No 03/27/25 09:02 [email or web address] Vomiting No 03/27/25 09:02 [email or web address] Anesthesia Postop Eval I: Fluid Summary Crystalloid volume administer 600 03/27/25 09:02 [email or web address] (ml) Colloids volume administered ( ml) Blood Product volume administered (ml) Total IV fluid infused 600 03/27/25 09:02 [email or web address] Anesthesia Postop Eval I: Summary Notes Anesthesia Complication No 03/27/25 09:02 [email or web address] Anesthesia Complication Comment: Post-operative progress note Anesthesia: Postop Eval II Evaluation Mental status: Awake and Calm Pain Level: 0 nausea: No Vomiting: No Complications Anesthesia Complication: No
== END 2025-03-27 10:01 | disposition home or self-care (01) ==
LOC: EN 07:08 → AC 07:10
PROVIDERS: PCP Family Medicine; Referring Provider Family Medicine; Visit Provider Surgery
PROC: 0DJD8ZZ Inspection of Lower Intestinal Tract, Via Natural or Artificial Opening Endoscopic (ICD-10-PCS; CPT 45378; principal; 2025-03-27 07:55)
DX: Z12.11 Encounter for screening for malignant neoplasm of colon (principal); E11.9 Type 2 diabetes mellitus without complications; Z79.85 Long-term (current) use of injectable non-insulin antidiabetic drugs; F41.9 Anxiety disorder, unspecified; F32.A Depression, unspecified; Z79.899 Other long term (current) drug therapy
CPT/HCPCS: G0121; 82962; J2405

== ENCOUNTER → 2025-05-05 | Outpatient (CLI) | payer MEDICARE, MEDICAID, SELFPAY ==
--- NOTE | 2025-05-05 11:21 | CALC_PTH ---
PATIENT: NORMA BOONE LOC: GEO U#:[id number] AGE/SX: 54/F ROOM: RE05/05/[address]: Dr. Nico Simon MD : 1970 BED: DIS: 05/05/2025 SPEC #: [id number] RECD: 05/05/25 14:58 STATUS: OVIDIO NEL #: [id number] WILL: 05/05/25 11:[address]: Nico Simon DEPT: SURGICAL PATHOLOGY RECD BY: Jerry Shaw Tissues: A - CALCULI Procedures: Surgery Specimen Level I HEADER OPERATION: Not noted PRE-OP DIAGNOSIS: Diabetes mellitus due to underlying condition with unspecified diabetic retinopathy without macular edema TISSUE SUBMITTED: A- Calculus GROSS DIAGNOSIS A. Calculus, removal: Calculus (gross examination only)-sent for stone analysis. COMMENT The calculus is submitted in its entirety for chemical stone analysis. The results from this study will be reported separately. GROSS DESCRIPTION A. Received fresh labeled patient's name and date of . Designated as calculus analysis is a 0.9 cm yellow-green, smooth calculus. No sections are submitted. The specimen is for gross examination only. The specimen is sent for stone analysis. [place] 05/05/2025 CPT:38758
== END | disposition home or self-care (01) ==
LOC: MFPLAB 12:17 → LABSPEC 12:17
PROVIDERS: PCP Family Medicine; Visit Provider Family Medicine
DX: N20.9 Urinary calculus, unspecified (principal); E08.319 Diabetes mellitus due to underlying condition with unspecified diabetic retinopathy without macular edema
CPT/HCPCS: 82360; 88300